=== PATIENT | male | born 1950 | race Hispanic/Latino ===

== ENCOUNTER 2020-04-19 08:53 | Emergency (ER) | payer OTHER, BC ==
--- NOTE | 2020-04-19 11:00 | RAD REPORT ---
EXAM DESCRIPTION: CT - Head Brain Wo Cont - 04/19/2020 10:51 am CLINICAL HISTORY: epistaxis COMPARISON: None TECHNIQUE: Computed axial tomography of the head was obtained. IV contrast was not requested. All CT scans are performed using dose optimization technique as appropriate and may include automated exposure control or mA/KV adjustment according to patient size. FINDINGS: An intracranial bleed is not seen . The ventricles are normal in caliber. No extra-axial fluid collection is noted. Fluid is present within the right and left maxillary sinuses. Deviation of the nasal septum is noted. IMPRESSION: No acute intracranial abnormality is seen. If patient's symptoms persist MRI of the bra in would be recommended. Fluid within maxillary sinuses may indicate acute sinusitis
--- NOTE | 2020-04-19 11:15 | ER ---
Nurse's Notes [facility] Name: Manjinder Suggs Age: 70 yrs Sex: Male : 1950 Arrival Date: 04/19/2020 Time: 08:55 Bed 30 Private MD: Diagnosis: Acute maxillary sinusitis;Epistaxis Presentation: 04/19 09:30 Chief complaint: Patient states: has been a nose bleed on right nostril for past 4 iw days, intermittent, worse at night , this morning it was bad , has slowed down but still trickling . not on blood thinners. Coronavirus screen: At this time, the client does not indicate any symptoms associated with coronavirus-19. Ebola Screen: Patient negative for fever greater than or equal to 101.5 degrees Fahrenheit, and additional compatible Ebola Virus Disease symptoms Patient denies exposure to infectious person. Patient denies travel to an Ebola-affected area in the 21 days before illness onset. No symptoms or risks identified at this time. Initial Sepsis Screen: Does the patient meet any 2 criteria? No. Patient's initial sepsis screen is negative. Does the patient have a suspected source of infection? No. Patient's initial sepsis screen is negative. Risk Assessment: Do you want to hurt yourself or someone else? Patient reports no desire to harm self or others. Onset of symptoms was April 15, 2020. 09:30 Method Of Arrival: Ambulatory iw 09:30 Acuity: RENÉE 3 iw Historical: - Allergies: 09:33 No Known Allergies; iw - PMHx: 09:33 Arthritis; Gout; Hypertension; iw - PSHx: 09:33 Cholecystectomy; Hernia repair; iw - Immunization history:: Adult Immunizations unknown. - Social history:: Smoking status: unknown. Screenin:30 Abuse screen: Denies threats or abuse. Denies injuries from another. Nutritional jl7 screening: No deficits noted. Tuberculosis screening: No symptoms or risk factors identified. Fall Risk None identified. Assessment: 10:30 General: Appears in no apparent distress. uncomfortable, Behavior is calm, cooperative, jl7 appropriate for age. Pain: Denies pain. Neuro: Level of Consciousness is awake, alert, obeys commands, Oriented to person, place, time, situation. Cardiovascular: Patient's skin is warm and dry. Respiratory: Airway is patent Respiratory effort is even, unlabored, Respiratory pattern is regular, symmetrical. Derm: Skin is pink, warm \T\ dry. Vital Signs: 09:30 BP 155 / 92; Pulse 69; Resp 16; Temp 98.3; Pulse Ox 98% on R/A; Weight 129.27 kg; iw ED Course: 08:55 Patient arrived in ED. rg4 09:33 Triage completed. iw 09:34 Arm band placed on. iw 10:16 Mandy Miller RN is Primary Nurse. jl7 10:23 Samuel Ford PA is PHCP. cp 10:23 Brain Miranda MD is Attending Physician. cp 10:30 Patient has correct armband on for positive identification. Bed in low position. Call jl7 light in reach. Side rails up X 1. 10:49 CT Head Brain wo Cont In Process Unspecified. EDMS 11:14 Gracie Strauss MD is Referral Physician. cp 11:22 No provider procedures requiring assistance completed. Patient did not have IV access jl7 during this emergency room visit. Administered Medications: No medications were administered Outcome: 11:15 Discharge ordered by MD. cp 11:22 Discharged to home ambulatory. jl7 11:22 Condition: stable 11:22 Discharge instructions given to patient, Instructed on discharge instructions, follow up and referral plans. medication usage, Demonstrated understanding of instructions, follow-up care, medications, Prescriptions given X 1. 11:23 Patient left the ED. jl7 Signatures: Dispatcher [employer] EDRebeca Felix, RN PALMER Samuel Ford PA PA cp Garcia, Rubi rg4 Mandy Miller RN RN jl7
--- NOTE | 2020-04-19 11:16 | EDPHYS ---
Physician Documentation [facility] Name: Manjinder Suggs Age: 70 yrs Sex: Male : 1950 Arrival Date: 04/19/2020 Time: 08:55 Bed 30 Private MD: ED Physician Brain Miranda HPI: 04/19 10:40 This 70 yrs old Male presents to ER via Ambulatory with complaints of Nose cp Bleed. 10:40 The patient presents with a nose bleed, occurred from an unknown cause, that is cp intermittent and the bleeding resolved prior to arrival. Onset: The symptoms/episode began/occurred 4 day(s) ago. 10:40 Associated signs and symptoms: Pertinent negatives: cough, ear ache, fever, cp lightheadedness, shortness of breath, sore throat, active bleeding. Historical: - Allergies: 09:33 No Known Allergies; iw - PMHx: 09:33 Arthritis; Gout; Hypertension; iw - PSHx: 09:33 Cholecystectomy; Hernia repair; iw - Immunization history:: Adult Immunizations unknown. - Social history:: Smoking status: unknown. ROS: 10:45 ENT: Positive for history of epistaxis, Negative for drainage from ear(s), ear pain, cp difficulty swallowing, difficulty handling secretions. 10:45 Constitutional: Negative for body aches, chills, fever, poor PO intake. cp 10:45 Respiratory: Negative for cough, shortness of breath, wheezing. 10:45 Abdomen/GI: Negative for abdominal pain, nausea, vomiting, and diarrhea. 10:45 Skin: Negative for rash. 10:45 Neuro: Negative for headache, weakness. 10:45 All other systems are negative. Exam: 10:50 Constitutional: The patient appears in no acute distress, alert, awake, non-toxic, well cp developed, well nourished. 10:50 Head/Face: Normocephalic, atraumatic. cp 10:50 Eyes: Periorbital structures: appear normal, Conjunctiva: normal, no exudate, no injection, Lids and lashes: appear normal, bilaterally. 10:50 ENT: External ear(s): are unremarkable, Ear canal(s): are normal, clear, TM's: dullness, bilaterally, Nose: External nose: no obvious acute abnormality, Nasal septum: no septal hematoma appreciated, Nasal mucosa: dry, bleeding, is not appreciated, nasal drainage, is not appreciated, Mouth: Lips: moist, Oral mucosa: moist, Posterior pharynx: Airway: no evidence of obstruction, patent. 10:50 Neck: Lymph nodes: no appreciated lymphadenopathy. 10:50 Chest/axilla: Inspection: normal. 10:50 Cardiovascular: Rate: normal. 10:50 Respiratory: the patient does not display signs of respiratory distress, Respirations: normal, no use of accessory muscles, no retractions, labored breathing, is not present. 10:50 Skin: no rash present. Vital Signs: 09:30 BP 155 / 92; Pulse 69; Resp 16; Temp 98.3; Pulse Ox 98% on R/A; Weight 129.27 kg; iw MDM: 10:28 Patient medically screened. cp 11:00 Differential diagnosis: foreign body - resolved, foreign body - unresolved, nasal cp fracture, trauma, sinusitis, epistaxis r/t trauma, spontaneous epistaxis. 11:15 Data reviewed: vital signs, nurses notes, and as a result, I will discharge patient. cp 11:15 Counseling: I had a detailed discussion with the patient and/or guardian regarding: the cp historical points, exam findings, and any diagnostic results supporting the discharge/admit diagnosis, to return to the emergency department if symptoms worsen or persist or if there are any questions or concerns that arise at home. 04/19 10:36 Order name: CT Head Brain wo Cont; Complete Time: 11:07 cp Administered Medications: No medications were administered Disposition: 11:25 Chart complete. cp Disposition: 04/19/20 11:15 Discharged to Home. Impression: Acute maxillary sinusitis, Epistaxis. - Condition is Stable. - Discharge Instructions: Nosebleed, Adult, Sinusitis, Adult. - Prescriptions for Augmentin 875- 125 mg Oral Tablet - take 1 tablet by ORAL route every 12 hours for 10 days; 20 tablet. - Medication Reconciliation Form, Thank You Letter, Antibiotic Education, Prescription Opioid Use form. - Follow up: Gracie Strauss MD; When: 2 - 3 days; Reason: Recheck today's complaints. - Problem is new. - Symptoms have improved. Addendum: 04/20/2020 14:10 Co-signature as Attending Physician, Brain Miranda MD I agree with the assessment and k dr plan of care. Signatures: Dispatcher [employer] EDMS Brain Miranda MD MD kdr Rebeca Garcia RN RN iw Samuel Ford PA PA cp Leal, Jahala, PALMER RN jl7 Corrections: (The following items were deleted from the chart) 04/19 11:23 11:15 04/19/2020 11:15 Discharged to Home. Impression: Acute maxillary sinusitis; jl7 Epistaxis. Condition is Stable. Forms are Medication Reconciliation Form, Thank You Letter, Antibiotic Education, Prescription Opioid Use. Follow up: Gracie Strauss; When: 2 - 3 days; Reason: Recheck today's complaints. Problem is new. Symptoms have improved. cp
[2020-04-24 15:27] VITALS: BP 155/92; TEMP 98.3; O2SAT 98
== END 2020-04-19 11:23 | disposition home or self-care (01) ==
LOC: ER 08:53
DX: J01.00 Acute maxillary sinusitis, unspecified (principal); I10 Essential (primary) hypertension
CPT/HCPCS: 70450; 99283

== ENCOUNTER 2021-02-27 06:00 | Day surgery (SDC) | payer OTHER, BC ==
[2021-02-22 16:11] LABS: Absolute Lymphocytes (CBC) 2.5 K/uL (0.7-4.9); Basophils % 0.8 % (0-1.3); Hematocrit 48.3 % (39.6-49.0); Lymphocytes % 23.9 % (15.3-44.8); MPV 8.5 fL (7.6-11.3); RBC Red Blood Cell Count 5.01 M/uL (4.33-5.43)
[2021-02-22 16:24] LABS: Protime INR 1.04
--- NOTE | 2021-02-22 17:02 | RAD REPORT ---
EXAM DESCRIPTION: RAD - Chest Pa And Lat (2 Views) - 02/22/2021 4:39 pm CLINICAL HISTORY: Pre Op COMPARISON: CHEST SINGLE VIEW dated 11/02/2014; CHEST SINGLE VIEW dated 12/18/2012; CHEST SINGLE VIEW dated 12/17/2012; CHEST PA AND LAT 2 VIEW dated 09/12/2010 FINDINGS: Lines: None. Lungs: No evidence of edema or pneumonia. Pleural: No significant pleural effusions or pneumothorax. Cardiac: The heart size is within normal limits. Bones: No acute fractures. Other: IMPRESSION: No acute cardiopulmonary disease.
--- NOTE | 2021-02-25 09:03 | EKG ---
Test Date: 2021-02-22 Test Time: 14:46:14 Wheel Filler: CANDE MEASUREMENT RESULTS: Intervals: Rate: 61 ID: [id number] QRSD: 100 QT: 440 QTc: 442 Yale: P: 21 ID: [id number] QRS: -33 T: 16 INTERPRETIVE STATEMENTS: Normal sinus rhythm Left axis deviation Abnormal ECG Compared to ECG 02/09/2017 10:38:45 Left-axis deviation now present Electronically Signed On 02-25-21 08:57:58 CDT by Sylvester Falcon
[2021-02-27] MEDS ORDERED: NA CHLORIDE 0.9% 1,000 ML ONE (07:00)
[2021-02-27] MEDS ORDERED: CEFAZOLIN/SWI 2gm 2 GM/20 ML SYR ONE (07:01)
[2021-02-27] MEDS ORDERED: CELECOXIB 100 MG CAPSULE ONE (07:13)
[2021-02-27] MEDS ORDERED: ACETAMINOPHEN 500 MG TAB ONE (07:13)
[2021-02-27] MEDS ORDERED: LIDOCAINE 2% MPF 5 ML VIAL ONE (07:33)
[2021-02-27] MEDS ORDERED: MIDAZOLAM HCL 2 MG/2 ML INJ ONE (07:33)
[2021-02-27] MEDS ORDERED: propofoL 200 MG/20 ML VIAL IV ONE (07:33)
[2021-02-27] MEDS ORDERED: FENTANYL CITR 100 MCG/2 ML ONE (07:33)
[2021-02-27] MEDS ORDERED: dexAMETHasone 10 MG/ML VIAL ONE (07:33)
[2021-02-27] MEDS ORDERED: BUPIVACAINE 0.25% PF 30 ML VIAL ONE (07:41)
[2021-02-27] MEDS ORDERED: GLYCOPYRROLATE 0.2 MG/ML SYR ONE ×2 (08:14→08:23)
[2021-02-27] MEDS ORDERED: KETOROLAC 30 MG/ML INJ ONE (08:38)
--- NOTE | 2021-02-27 08:39 | P.BOP ---
Preoperative diagnosis: left knee medial meniscus tear Postoperative diagnosis: same, left knee lateral meniscus tear, left chondromalacia medial femur Primary procedure: left knee arthroscopic partial medial and lateral meniscectomies Acid Etch Operator: NONE,NONE Estimated blood loss: 3 cc Specimen: none Findings: see dictation Anesthesia: General Complications: None Implants: none Fluids & blood products: per anesthesia record; TT: 25 mins @ 300 mmHg Transferred to: Recovery Room Condition: Good
[2021-02-27] MEDS: HYDROMORPHONE HCL 1 MG/ML INJ ONE ×4 (08:45→09:00)
[2021-02-27] MEDS: MEPERIDINE HCL 50 MG/ML ONE ×4 (09:05→09:20)
[2021-02-27] MEDS ORDERED: HYDROCODONE/APAP 10/325 TAB ONE (10:14)
[2021-02-27 10:26] VITALS: BP 128/79; TEMP 97.3; O2SAT 99
--- NOTE | 2021-03-01 05:47 | OP ---
Date of Procedure: 02/27/2021 Surgeon: Abebe Zaman MD Preoperative Diagnosis: Left knee medial meniscus tear. Postoperative Diagnoses: 1.Left knee medial meniscus tear. 2.Left knee is lateral meniscus tear. 3.Left knee chondromalacia, medial femoral condyle. Procedure Performed: Left knee arthroscopic partial medial and lateral meniscectomies. Anesthesia: General LMA. Fluids: Per Anesthesia record. Estimated Blood Loss: 30 cc. Complications: None. Implants: None. Tourniquet Time: 25 minutes at 300 mmHg. Indication For Procedure: Manjinder is a 71-year-old male who presented to my clinic with signs, sympt oms, and MRI findings consistent with left knee medial meniscus tear. Patient failed conservative tr eatment measures and significant pain and mechanical symptoms of his left knee. I discussed with the patient at length risks and benefits associated with operative and nonoperative treatment. He expre ssed understanding and elected to proceed with operative treatment. Description Of Procedure: After informed consent was obtained, the patient was identified in preoper ative holding area. The left lower extremity was marked. The patient was then brought back to the o perating room, transferred to the operating table in supine fashion and placed under general LMA anes thesia. The left lower extremity was then prepped and draped in usual sterile fashion. A time-out w as initiated. The correct patient and procedure were confirmed and identified. The patient did rece jessica his preoperative prophylactic antibiotics. The left lower extremity was then exsanguinated using an Esmarch and tourniquet was inflated to 300 mmHg. Standard anteromedial and anterolateral portals were created. Diagnostic arthroscopy was performed. Patient was noted to have some mild chondromal acia changes of the trochlear groove. There were no loose bodies within the medial and lateral gutte rs. The arthroscope was then brought into the medial compartment. Patient was noted to have some gr nevaeh 3 chondromalacia changes of the medial femoral condyle and the patient was noted to have a comple x tear of the posterior horn of the medial meniscus. Partial medial meniscectomy was performed using a meniscal biter and arthroscopic shaver to smooth meniscal borders. It did have a radial component near the periphery. The arthroscope was then brought in the intercondylar notch. The patient was n oted to have an intact ACL and PCL. The arthroscope was then brought in the lateral compartment wher e the patient was noted to have a small degenerative tear of the posterior horn of the lateral menisc us. A partial lateral meniscectomy was performed using meniscal biters and arthroscopic shaver to sm ooth meniscal borders. This was less than 10% of the meniscus within the posterior horn. The arthro scopic instruments were then removed without complication. Wounds were then irrigated thoroughly wit h normal saline. Subcutaneous tissues and portals were approximated using 3-0 Monocryl. Sterile melody ssings were applied. Tourniquet was let down. Patient awakened and transferred to PACU in stable co ndition. Postoperative Plan: The patient will be weightbearing as tolerated and he will follow up in clinic n ext week for wound check. Physical Therapy will be consulted. The patient will use therapy per post meniscectomy protocol. ISSA/MIRZA Voice ID: [id number] Report ID: [id number]
== END 2021-02-27 11:00 | disposition home or self-care (01) ==
LOC: PRE 06:00
PROVIDERS: ATTEND Orthopaedic Surgery Sports Medicine
PROC: 0SBD4ZZ Excision of Left Knee Joint, Percutaneous Endoscopic Approach (ICD-10-PCS; 2021-02-27)
PROC: 0SBD4ZZ Excision of Left Knee Joint, Percutaneous Endoscopic Approach (ICD-10-PCS; principal; 2021-02-27 07:30)
DX: S83.232A Complex tear of medial meniscus, current injury, left knee, initial encounter (principal); M25.562 Pain in left knee; M17.12 Unilateral primary osteoarthritis, left knee; Z20.822 Contact with and (suspected) exposure to COVID-19
CPT/HCPCS: 93005; 85025; 80048; 36415; 85610; 82947 ×2; 85730; 71046; 29880; U0003; J2704; J2250; J3010; J1100; J2175; J1170 ×2; J0690; J7030

== ENCOUNTER 2022-02-28 05:55 | Day surgery (SDC) | payer OTHER, BC ==
[2022-02-24 11:09] LABS: Absolute Lymphocytes (CBC) 2.2 K/uL (0.7-4.9); Hematocrit 45.4 % (39.6-49.0); Lymphocytes % 26.7 % (15.3-44.8); MCV 95.4 fL (80-100); MPV 8.4 fL (7.6-11.3); RBC Red Blood Cell Count 4.76 M/uL (4.33-5.43)
[2022-02-24 11:14] LABS: Protime INR 1.05
[2022-02-24 11:21] LABS: Potassium 4.5 mmol/L (3.5-5.1)
--- NOTE | 2022-02-24 11:36 | RAD REPORT ---
EXAM DESCRIPTION: Lawrence Huffman (2 Views)02/24/2022 10:55 am CLINICAL HISTORY: Preop for shoulder surgery COMPARISON: 2020 FINDINGS: The lungs appear clear of acute infiltrate. The heart is normal size IMPRESSION: No acute abnormalities displayed
[2022-02-24 11:45] LABS: SARS-CoV-2 Antigen Rapid Res Negative (Negative)
[2022-02-28] MEDS ORDERED: NA CHLORIDE 0.9% 1,000 ML ONE (06:19)
[2022-02-28] MEDS ORDERED: CEFAZOLIN SODIUM 2 GM/VIAL ONE (06:19)
[2022-02-28] MEDS ORDERED: EPINEPHRINE/PF 1 MG/ML AMP ONE ×2 (07:03→09:14)
[2022-02-28] MEDS ORDERED: LIDOCAINE 1% MPF 5 ML VIAL ONE (07:18)
[2022-02-28] MEDS ORDERED: dexAMETHasone 10 MG/ML VIAL ONE ×2 (07:19→09:41)
[2022-02-28] MEDS ORDERED: FENTANYL CITR 100 MCG/2 ML ONE (07:19)
[2022-02-28] MEDS ORDERED: MIDAZOLAM HCL 2 MG/2 ML INJ ONE (07:20)
[2022-02-28] MEDS ORDERED: propofoL 200 MG/20 ML VIAL IV ONE ×2 (08:15→08:58)
[2022-02-28] MEDS ORDERED: LIDOCAINE 2% MPF 5 ML VIAL ONE (08:16)
[2022-02-28] MEDS ORDERED: ROCURONIUM 50 MG/5 ML VIAL IV ONE ×2 (08:17→09:01)
[2022-02-28] MEDS ORDERED: EPHEDRINE SULF 50 MG/ML VIAL ONE (08:38)
[2022-02-28] MEDS ORDERED: GLYCOPYRROLATE 0.2 MG/ML SYR ONE (09:14)
[2022-02-28] MEDS ORDERED: SUGAMMADEX SODIUM 200 MG/2 ML VIAL IV ONE (09:43)
--- NOTE | 2022-02-28 10:15 | P.BOP ---
Preoperative diagnosis: left shoulder rotator cuff tear, left shoulder impingement syndrome Postoperative diagnosis: same, left shoulder SLAP tear Primary procedure: left shoulder arthroscopic rotator cuff repair Secondary procedure: left shoulder arthroscopic SLAP debridement Other procedure(s): left shoulder arthroscopic subacromial dcompression [employer] Advisor: NONE,NONE Estimated blood loss: 5 cc Specimen: none Findings: see dictation Anesthesia: General Complications: None Implants: 4.75 mm Arthrex swivelock Fluids & blood products: per anesthesia record Transferred to: Recovery Room Condition: Good
[2022-02-28 11:30] VITALS: BP 100/53; TEMP 96.6; O2SAT 98
--- NOTE | 2022-02-28 12:32 | RAD REPORT ---
EXAM DESCRIPTION: RAD - Shoulder 1 View - 02/28/2022 10:26 am CLINICAL HISTORY: POST-OP COMPARISON: Shoulder Left Wo Cont dated 09/17/2021 FINDINGS: Single frontal projection of the left shoulder was performed. Mild arthritic changes are p resent. No fracture or dislocation seen.
--- NOTE | 2022-03-02 10:10 | P.OP ---
Preoperative diagnosis: left shoulder rotator cuff tear, impingement syndrome Postoperative diagnosis: same, SLAP tear Primary procedure: left shoulder arthroscopic rotator cuff repair Secondary procedure: left shoulder arthroscopic SLAP debridement Other procedure(s): left shoulder arthroscopic subacromial dcompression Anesthesia: general Estimated blood loss: 5 cc Specimen: none Findings: see dictation Operative Technique: Indication For Procedure: Manjinder is a 72-year-old male, who presented to my clinic with signs, symptoms, and MRI findings consistent with a left shoulder rotator cuff tear. The patient failed conservative treatment measures and had significant pain that interferes with activities of daily living. I discussed with the patient at length risks and benefits associated with operative and nonoperative treatment. He expressed understanding and elected to proceed with operative treatment. Description Of Procedure: After informed consent was obtained, the patient was identified in the preoperative holding area and the left upper extremity was marked. The patient was then brought back to PACU where he underwent an interscalene block to his left upper extremity performed by anesthesia. The patient was then brought back to the operating room, transferred to the operating table in supine fashion, and placed under general endotracheal anesthesia. He was then placed in the beach chair position with his extremitieswell padded. The left upper extremity was then prepped and draped in usual sterile fashion and a time-out was initiated. The correct patient and procedurewere confirmed and identified. The patient did receive his preoperative prophylactic antibiotics. A spinal needle was then introduced into the glenohumeral joint and the shoulder was injected with 30 cc of normal saline to distend the capsule. A posterior portal was created and the arthroscope was brought in via the posterior portal position. A diagnostic arthroscopy was performed. An anterior cannula and portal were placed under direct visualization. A biceps tenotomy was then performed, there was no significant fraying of the biceps tendon anchor as well as a type 1 SLAP tear. Using a meniscal biter, the anchor was then debrided using an arthroscopic shaver as well as the type 1 SLAP tear to smooth borders. There was no significance fraying of the the anterior or posterior labrum. There was no significant chondromalacia noted of the humeral head. There were no loose bodies within the axillary pouch. The subscapularis was found to be intact and stable to probe. The anterior supraspinatus was identified and the patient noted to have a small full-thickness tear of the anterior insertion point of thesupraspinatus. This was debrided using arthroscopic shaver after lateral portal was created using an arthroscopic shaver. The arthroscope was then brought to the subacromial space and a subacromial bursectomy was performed. There was significant inflammation noted within the bursa with bursitis as well as frayingof the coracoacromial ligament. The rotator cuff tear was then identified. It was small and not significantly retracted and amenable to repair using a Speed-fix fixation. A FiberTape was then placed in an inverted horizontal mattress fashion within that rotator cuff tearing. This was held reduced to the greater tuberosity and a single 4.75 mm Arthrex SwiveLock was used to reduce the tear. There was good overall reduction of the tear. The patient was noted to have significant hyperemia of the rotator cuff and significant fraying of the rotatorcuff tendon consistent with tendinitis as well as degeneration. Next, attention was taken to subacromial decompression. Undersurface of the acromion was then debrided using an arthroscopic shaver as well as part of the coracoacromial ligament. An acromioplasty was then performed using arthroscopic alonso. Arthroscopic instruments were then removed without complication. Wounds were irrigated thoroughly with normal saline. Skin was approximated using a 4-0 Monocryl. Sterile dressings were applied. The patient was placed in a shoulderimmobilizer, awakened, transferred to PACU in stable condition. Postoperative Plan: The patient will follow the medial rotator cuff protocol at 4 weeks postop. Complications: None Implants: 4.75 mm Swivelock Fluids & blood products: per anesthesia reocrd Transferred to: Recovery Room Condition: Good
== END 2022-02-28 12:00 | disposition home or self-care (01) ==
LOC: OR 05:55
PROVIDERS: ATTEND Orthopaedic Surgery Sports Medicine
PROC: 0LM24ZZ Reattachment of Left Shoulder Tendon, Percutaneous Endoscopic Approach (ICD-10-PCS; 2022-02-28)
PROC: 0RNK4ZZ Release Left Shoulder Joint, Percutaneous Endoscopic Approach (ICD-10-PCS; principal; 2022-02-28 08:00)
DX: M25.512 Pain in left shoulder (principal); M75.102 Unspecified rotator cuff tear or rupture of left shoulder, not specified as traumatic; M75.22 Bicipital tendinitis, left shoulder; M75.42 Impingement syndrome of left shoulder; I10 Essential (primary) hypertension; E11.9 Type 2 diabetes mellitus without complications; B19.10 Unspecified viral hepatitis B without hepatic coma; Z20.822 Contact with and (suspected) exposure to COVID-19
CPT/HCPCS: 29827; 29826; 29822; 85025; 80048; 36415; 85610; 82947 ×2; 85730; 71046; 73020; 87811; J2704 ×2; J0171 ×2; J2001 ×2; J2250; J3010; J1100 ×2; J7030

== ENCOUNTER 2023-07-29 08:17 | Day surgery (SDC) | payer OTHER, BC ==
--- NOTE | 2023-07-28 13:30 | RAD REPORT ---
EXAM DESCRIPTION: RAD - Chest Pa And Lat (2 Views) - 07/28/2023 1:02 pm CLINICAL HISTORY: PREOP Chest pain. COMPARISON: Chest Pa And Lat (2 Views) dated 02/24/2022; Chest Pa And Lat (2 Views) dated 02/22/2021 ; CHEST SINGLE VIEW dated 11/02/2014; CHEST SINGLE VIEW dated 12/18/2012 TECHNIQUE: PA and lateral views of the chest were obtained. FINDINGS: The lungs are hyperexpanded compatible with COPD. The heart is upper limit of normal in si ze. No fracture or aggressive bony process. IMPRESSION: COPD without acute process identified. The USPSTF recommends annual screening for lung cancer with low-dose CT (LDCT) in adults aged 50 to 8 0 years who have a 20 pack-year smoking history and currently smoke or have quit within the past 15 y ears.
[2023-07-28 14:13] LABS: Anion Gap 8.1 mEq/L (5.0-15.0); Potassium 4.1 mEq/L (3.5-5.1)
[2023-07-28 14:34] LABS: Absolute Eosinophils 0.4 K/uL (0-0.5); Absolute Lymphocytes (CBC) 2.1 K/uL (0.7-4.9); Absolute Monocytes 0.5 K/uL (0.1-1.3); Absolute Neutrophil 4.4 K/uL (1.8-8.0); Basophils % 0.6 % (0-1.3); Eosinophils % 5.4 % (0-4.4); Hematocrit 44.2 % (39.6-49.0); Hemoglobin 14.8 g/dL (13.6-17.9); Lymphocytes % 28.7 % (15.3-44.8); MCH 31.9 pg (27.0-35.0); MCHC 33.5 g/dL (32.0-36.0); MCV 95.3 fL (80-100); MPV 9.3 fL (7.6-11.3); Monocytes % 6.7 % (3.3-12.3); Neutrophils % 58.6 % (41.7-73.7); Nucleated Red Blood Cells % 0.2 % (0-0); Platelets 128 thou/uL (152-406); RBC Red Blood Cell Count 4.64 M/uL (4.33-5.43); Red Cell Distribution Width 13.7 % (12.1-15.2)
[2023-07-29] MEDS: NA CHLORIDE 0.9% 1,000 ML ONE (09:00)
[2023-07-29] MEDS: CEFAZOLIN SODIUM 1 GM/VIAL ONE (11:08)
[2023-07-29] MEDS ORDERED: propofoL 200 MG/20 ML VIAL IV ONE (11:42)
[2023-07-29] MEDS ORDERED: dexAMETHasone 4 MG/ML VIAL ONE (11:42)
[2023-07-29] MEDS ORDERED: LIDOCAINE 1% MPF 5 ML VIAL ONE (11:42)
[2023-07-29] MEDS ORDERED: FENTANYL CITR 100 MCG/2 ML ONE (11:43)
[2023-07-29] MEDS ORDERED: MIDAZOLAM HCL 2 MG/2 ML INJ ONE (11:44)
[2023-07-29] MEDS ORDERED: ONDANSETRON 4 MG/2 ML VIAL ONE (11:45)
[2023-07-29] MEDS ORDERED: EPHEDRINE SULF 50 MG/ML VIAL ONE (12:34)
[2023-07-29] MEDS ORDERED: GLYCOPYRROLATE 0.2 MG/ML SYR ONE (12:44)
--- NOTE | 2023-07-29 13:17 | P.BOP ---
Preoperative diagnosis: Infected left posterior neck mass Postoperative diagnosis: same Primary procedure: Excisional biopsy of Infected left posterior neck mass 4x2cm Estimated blood loss: <10cc Specimen: Infected left posterior neck mass Findings: Infected left posterior neck mass Anesthesia: General Complications: None Transferred to: Recovery Room Condition: Good
[2023-07-29 15:00] VITALS: BP 141/81; TEMP 97; O2SAT 97
--- NOTE | 2023-07-29 19:42 | OP ---
Date of Procedure: 07/29/2023 Surgeon: Thee Holloway MD Preoperative Diagnosis: Infected left posterior neck subcutaneous mass. Postoperative Diagnosis: Infected left posterior neck subcutaneous mass. Procedure: Excisional biopsy of infected left posterior neck subcutaneous mass 4 x 2 cm. Estimated Blood Loss: Less than 10 cc. Specimen: Infected left posterior neck mass. Finding: Infected left posterior neck mass. Complications: None. Indication: This is a case of a 73-year-old patient who came to us with infected posterior neck mass . Patient was started on antibiotics to bring the erythema down and swelling down. The mass was sti ll present. He wants that excised. This is not the first time it happened to him and he wants to be done also under anesthesia. He cannot even take needles in that area. So he has to be booked under Anesthesia. The benefits, alternatives, and risks of excisional biopsy of infected mass fully expla ined, which include, but not limited to, infection, bleeding, damage to adjacent structures, anesthes ia complication, recurrence, LA, even . He also understands this may not relieve any symptoms. He might need more than one surgical intervention. He understood, signed a consent. Description Of The Operation: The patient was brought to the operating room, placed in supine positi on. Anesthesia was done without complication. The patient was placed in lateral decubitus position with proper protection. The area of concern was marked previously by me and the patient in the [facility] [facility] room. So after the time-out, we prepped the area in the usual sterile fashion. Local anesthesia was applied followed by wedge incision all the way down to fascia of the muscle but the muscle was no t involved in this case. Mass was completely excised. Some other areas that seems to be swollen is not part of the mass. This was just a reaction from its inflammation that is coming down. Area was irrigated. We proceeded to approximate the area with 3-0 chromic and then nylon interrupted. Patien t tolerated the procedure well. Sponge counts and instrument counts were correct. Hemostasis was ob tained before closure and also local anesthetic was applied. Patient sent to Recovery in stable cond ition. HM/MODL Voice ID: [id number] Report ID: [id number]
--- NOTE | 2023-07-29 19:48 | DS ---
Date of Discharge: 07/29/2023 Diagnosis: Infected left posterior neck subcutaneous mass. Procedure: Excisional biopsy of infected left posterior neck subcutaneous mass. Disposition: Home. Activity: As tolerated. No heavy lifting. Plan: Follow up in my office in 1 week. Call for appointment [phone]. Keep area dry for 24 hours, then clean with soap and water and apply topical antibiotic ointment in that region. He understands . It was previously explained to him that in the next few days, it is hard to get red, we may have t o just let this close by secondary intention. He still want to see if we can put the stitches in and he took the antibiotics and it improved so much. PAULINA/MIRZA Voice ID: [id number] Report ID: [id number]
== END 2023-07-29 14:25 | disposition home or self-care (01) ==
LOC: OR 08:17
PROVIDERS: ATTEND Surgery
PROC: 0JB50ZZ Excision of Left Neck Subcutaneous Tissue and Fascia, Open Approach (ICD-10-PCS; principal; 2023-07-29 11:45)
DX: L72.0 Epidermal cyst (principal)
CPT/HCPCS: 11424; 85025; 80048; 36415; 82947 ×2; 88304; 71046; J2704; J1100; J2001; J2250; J3010; J2405; J7030; J0690

== ENCOUNTER 2024-02-27 11:33 | Emergency (ER) | payer OTHER, BC ==
--- OUTSIDE RECORDS SUMMARY | 2024-02-27 11:36 | XMS REPORT | Continuity of Care Document ---
Author Name Unknown Address [address] [facility] [address] [place] [address] [facility] thconnect Address [address] [facility] [place] [address] Care Team Providers Care Band Attacher Name Role Phone BENNY MOORE Primary Care Physician Unavaila Benny Pina Attending Clinician Unavailable Yunier, [place] Attending Clinician Unavailable ARTURO ÁLVAREZ Attending Clinician Unavaila Amanda Bone Cardiology Attending Clinician Unavailable RADIOLOGY Attending Clinician Unavailable Radiology Attending Clinician Unavailable Rebeca Cardona MD Attending Clinician REBECA CARDONA Attending Clinician Unavailable Doctor Unassigned, [place] Attending Clinician U navailable Yunier, [place] Admitting Clinician Unavailable ARTURO ÁLVAREZ Admitting Clinician Unavaila Amanda Bnoe Cardiology Admitting Clinician Unavailable PEGGY MORRIS Admitting Clinician Unavaila REBECA Watts Admitting Clinician Unavailable Payers Payer Name Policy Type Policy Number Effective Date Expiration Date Source [facility] PPO 53 [id number] [facility] MEDICARE PART A \\T\\ B [id number] 2015 00:00:00 [facility] [id number] 2017 00:00:00 Problems Condition Name Condition Details Condition Category Status Onset Date Resolution Date Last Treatment Date Treating Clinician Comments Source Chronic pain syndrome Chronic pain syndrome Problem [facility] Skin sensation disturbanc e Bilateral leg paresthesi a Problem [facility] Acquired hallux rigidus Hallux rigidus, left foot Problem [facility] [id number] Adult-onse t obesity Problem [facility] Solitary sacroiliit is Sacroiliit is Problem [facility] Allergies, Adverse Reactions, Alerts Allergy Name Allergy Type Status Severity Reaction(s) Onset Date Inactive Date Treating Clinician Comments Source No Known Allergie s DA Active U 01-21 00:00: 00 [facility] NO KNOWN ALLERGIE S Drug Class Active [facility] Social History Social Habit Start Date Stop Date Quantity Comments Source History of Tobacco Use [facility] Sex Assigned At [facility] Smoking Status Start Date Stop Date Source Tobacco smoking consumption unknown [facility] Never Smoker [facility] Medications Ordered Medication Name Filled Medication Name Start Date Stop Date Current Medication? Ordering Clinician Indication Dosage Frequency Signature (SIG) Comments Components Source Pregabalin 200 MG Pregabalin 200 MG - 00:00: 00 No 1{capsu le} BID Pregabalin 200 MG amLODIPine Besylate 10 MG amLODIPine Besylate 10 MG No amLODIPine Besylate 10 MG Allopurinol 300 MG Allopurinol 300 MG No Allopurino l 300 MG Rosuvastati n Calcium 20 MG Rosuvastati n Calcium 20 MG No Rosuvastat in Calcium 20 MG Ramipril 1.25 MG Ramipril 1.25 MG No Ramipril 1.25 MG Metoprolol Tartrate 25 MG Metoprolol Tartrate 25 MG No Metoprolol Tartrate 25 MG metFORMIN HCl ER 500 MG metFORMIN HCl ER 500 MG No metFORMIN HCl ER 500 MG Vital Signs Vital Name Observation Time Observation Value Comments S ource height 2023-11-25 13:00:00 71 [in_i] [facility] weight-kg 2023-11-25 13:00:00 120.2 kg [facility] bmi 2023-11-25 13:00:00 36.96 kg/m2 [facility] heart rate 2023-11-25 13:00:00 76 /min [facility] blood pressure systolic 2023-11-25 13:00:00 129 mm[Hg] [facility] blood pressure diastolic 2023-11-25 13:00:00 81 mm[Hg] [facility] Procedures Procedure Date / Time Performed Performing Clinicia n Source MR PELVIS WO CONTRAST 2022-10-23 16:35:23 Requisition, Paper [facility] XR HIPS 2 VW BILATERAL 2022-10-16 17:42:40 Requisition , Paper [facility] XR LUMBAR SPINE 2 VW 2022-10-16 17:42:40 Rebeca Cardona [facility] ASSIGNMENT OF BENEFITS 2022-10-16 17:02:51 Docto r Unassigned, [place] [facility] Encounters Start Date/Time End Date/Time Encounter Type Admission Type Attending Clinicians Care Facility Care Department Encounter ID Source 2023-11-25 12:57:00 Outpatient Moore, Benny [facility] [id number] [facility] 2024-01-22 20:28:00 2024-01-23 15:44:00 Inpatient ДМИТРИЙ [place] [facility] INTE.02 [id number] [facility] 2023-11-25 00:00:00 2023-11-25 00:00:00 Office Visit- Est Pt.- Level 4 [facility] [id number] [facility] 2023-09-24 12:04:00 2023-09-25 09:45:00 Outpatient ARTURO ÁLVAREZ [facility] [id number] BL 2023-02-17 11:45:00 2023-02-17 11:45:00 Outpatient Amanda Larios [facility] [id number] 98 [facility] 2022-10-23 10:06:58 2022-10-23 23:59:00 Outpatient R RADIOLOGY [facility] RAD [id number] [facility] 2022-10-23 10:06:58 2022-10-23 23:59:00 Hospital Encounter Radiology [facility] [id number] [facility] 2022-10-16 12:06:42 2022-10-16 23:59:00 Hospital Encounter Rebeca Cardona [facility] [id number] [facility] 2022-10-16 12:06:42 2022-10-16 23:59:00 Outpatient R PANCHOCHRISTI MURPHYIC [facility] [id number] [facility] 2022-10-16 00:00:00 2022-10-16 00:00:00 Orders Only Doctor Unassigned, [place] [facility] [id number] [facility] Results Test Description Test Time Test Comments Results Result Co mments Source GLUCOSE BEDSIDE [id number] 07:28:00* Test Item Value Reference Range Interpretation Comme [facility] GLUCOSE BEDSIDE TESTING (mary t code = GLUBED) 85 MG/DL 60-99 N LIPID PROFILE (CORONARY RISK)2024-01-23 05:22:00* Test Item Value Reference Range Interpretation Comme [facility] TRIGLYCERIDES (test code = TRIG) 344 MG/DL 150-199 H TRIGLYCERIDES REFERENCE RANGE:Normal: <150 mg/dLBorderline High: 150-199 mg/dLHigh: 200-499 mg/dLVery High: >=500 mg/dL CHOLESTEROL (test code = CHOL) 98 MG/DL <200 HDL CHOLESTEROL (test code = HDL) 29 MG/DL 40-59 L LIPOPROTEIN LDL (test code = LDL) 36 MG/DL 0-99 N OPTIMAL......... <100 mg/dLNEAR OPTIMAL/ABOVE OPTIMAL.........100-12 9 mg/dL BORDERLINE HIGH.........130-159 mg/dL HIGH.........160-189 mg/dL VERY HIGH.........>/= 190 mg/dL [id number] 05:22:00* Test Item Value Reference Range Interpretation Comme [facility] PHOSPHOROUS (test code = PHOS) 3.7 MG/DL 2.5-4.5 N [id number] 05:22:00* Test Item Value Reference Range Interpretation Comme [facility] MAGNESIUM (test code = MAG) 2.0 MG/DL 1.6-2.3 N THYROID STIMULATING [id number] 05:22:00* Test Item Value Reference Range Interpretation Comme [facility] THYROID STIMULATING HORMONE (test code = TSH) 2.640 MIU/L 0.465-4.68 N Please be aware that bias results for TSH may occur forpatient who are taking Biotin supplements. [id number] 05:09:00* Test Item Value Reference Range Interpretation Comme [facility] TROPONIN-I (test code = TROPI) < 0.012 NG/ML 0.012-0.033 L "Please be aware that bias results for Troponin may occurfor patients who are taking Biotin supplements, causingfalsely low troponin results. Please screen for routineBiotin (Vitamin B7) supplements taken in mirian doses (greaterthan 100-300mg/day) or beauty supplements." PROTHROMBIN [id number] 05:00:00* Test Item Value Reference Range Interpretation Comme [facility] PROTHROMBIN TIME PATIENT (test code = PTP) 11.4 SECONDS 9.4-12.5 N INTERNATIONAL NORMAL RATIO (test code = INR) 1.0 0.86-1.14 N The INR is to be used only for monitoring oral anticoagulanttherap y. INDICATION INR VALUE -------1. Prophylaxis, deep venous thrombosis, including high risk surgery. 2.0 - 3.0 2. Prophylaxis, deep venous thrombosis, hip surgery, treatment for deep venous thrombosis or pulmonary prevention of systemic embolism in patients with valvular heart disease, atrial fibrillation, tissue heart valve, or acute myocardial infarction. 2.0 - 3.0 3. Mechanical prosthesis heart valves, recurrent systemic embolism. 3.0 - 4.5 PTT [id number] 05:00:00* Test Item Value Reference Range Interpretation Comme nts PTT ACTIVATED (test code = APTT) 36.5 SECONDS 25.1-36.5 N GLYCOSYLATED HEMOGLOBIN [id number] 04:50:00* Test Item Value Reference Range Interpretation Comme nts GLYCOSYLATED HEMOGLOBIN (HA1C) (test code = GLYHGB) 5.5 % 4.8-5.9 N Any condition th at shortens erythocyte survival or decreasesmean erythrocyte age (e.g., recovery from acute blood loss,hemolytic anemia) will falsely lower HGBA1c resultsregardless of the method used. HGBA1c results from patientswith HbSS, HbCC, and HbSc must be interpreted with cautiongiven the pathological processes, including anemia,increased red cell turnover, transfusion requirements, thatadversely impact HGBA1c as a marker of long-term glycemiccontrol. Alternative forms of testing such as fructosamineshould be considered for these patients. MEAN BLOOD GLUCOSE (test code = MBG) 111 MG/DL 70-110 H [id number] 02:47:00* Test Item Value Reference Range Interpretation Comme nts TROPONIN-I (test code = TROPI) 0.014 NG/ML 0.012-0.033 "Please be aware that bias results for Troponin may occurfor patients who are taking Biotin supplements, causingfalsely low troponin results. Please screen for routineBiotin (Vitamin B7) supplements taken in mirian doses (greaterthan 100-300mg/day) or beauty supplements." COMPREHENSIVE METABOLIC [id number] 23:24:00* Test Item Value Reference Range Interpretation Comme nts SODIUM (test code = NA) 140 MMOL/L 137-145 N POTASSIUM (test code = K) 3.8 MMOL/L 3.5-5.1 N CHLORIDE (test code = CL) 104 MMOL/L 98-107 N CARBON DIOXIDE (test code = CO2) 29 MMOL/L 22-30 N GLUCOSE (test code = GLU) 206 MG/DL 74-106 H BLOOD UREA NITROGEN (test code = BUN) 30 MG/DL 9-20 H GLOMERULAR FILTRATION RATE (test code = GFR) 53 The Glomerular Filtration Rate is a calculated parameterbased on serum Creatinine, patient age and sex. GFR valuesless than 60 mL/min/1.73 square meters are indicative ofChronic Kidney Disease. Values less than 15 mL/min/1.73square meters indicate Kidney failure. The calculation forGFR is based on the CKD-EPI (2021) calculation. This formulais race indifferent and is the recommended formula for GFRby the National Kidney Foundation for Adults.The GFR will not calculate if the sex is unknown or if thepatient's age is <18 years. CREATININE (test code = CREAT) 1.40 MG/DL 0.66-1.25 H TOTAL PROTEIN (test code = PROT) 7.2 G/DL 6.2-7.6 N Ortho Clinical D iagnostic has made us aware of newinformation regarding the potential interference ofEltrombopag (a bone marrow stimulant used to treatthrombocytonmenia and aplastic anemia) with specific assayson the [employer] 5600 of which Total Protein is one of thoseassays performed in our lab.Interference testing performed at [facility] determined thatEltrombopag does interfere with Vitros Total Protein asfollowsEltrombopag Interference for Vitros Product Total Protein: Eltrombopag Max Observed Avg. BiasConcentration Concentration Concentration 2.5 mg/dl 6.0 g/dl +0.41 +0.34 3.5 mg/dl 6.0 g/dl +0.50 +0.45 5 mg/dl 6.0 g/dl +0.73 +0.65 2.5 mg/dl 8.0 g/dl +0.44 +0.41 3.5 mg/dl 8.0 g/dl +0.55 +0.52 5 mg/dl 8.0 g/dl +0.86 +0.77 ALBUMIN (test code = ALB) 4.4 G/DL 3.5-5.0 N CALCIUM (test code = CA) 9.0 MG/DL 8.4-10.2 N BILIRUBIN TOTAL (test code = BILT) 0.7 MG/DL 0.2-1.3 N Eltrombopag Inte rference for Vitros Product TBil, BuBc: Assay Eltrombopag Analyte/ Max Observed Avg. Bias Concentration Concentration Concentration TBil 7mg/dl TBil/ 1.2mg/dl +0.23mg.dl +0.20mg/dlBuBc 3.5mg/dl Bu/0.8mg/dl +0.25mg/dl +0.24mg/dlBuBc 7 mg/dl Bu/14.2mg/dl +0.38mg/dl +0.25mg/dlBuBc 5mg/dl Bc/0mg/dl +0.25mg/dl +0.15mg/dlBuBc 3.5mg/dl Bc/2.8mg/dl +0.25mg/dl +0.23mg/dl SGOT/AST (test code = AST) 24 UNITS/L 17-59 N SGPT/ALT (test code = ALT) 24 UNITS/L 0-49 N ALKALINE PHOSPHATASE (test code = ALKP) 78 UNITS/L 38-126 N NT PRO-BRAIN NATRIURETIC [id number] 23:24:00* Test Item Value Reference Range Interpretation Comme nts NT PRO-BRAIN NATRIURETIC PEPTI (test code = PROBNP) 1690.0 pg/mL INTERPRETATION O F RESULTS Results of this test should be used in accordance with the appropriate clinical guidelines and in conjunction with clinical presentation and other diagnostic tests. Clinical guidelines recommend using natriuretic peptides in both Emergency Department (ED) and outpatient settings for diagnosis or exclusion of heart failure (HF). The performance of the VITROS NT-proBNP II test was evaluated separately in each of these settings using published age-independent and age-dependent cutoffs. EMERGENCY DEPARTMENT SETTINGS/INPATIENT: For patients presenting to the ED settings with acute or worsening dyspnea and clinical suspicion of HF, the VITROS NT-proBNP II test results should be interpreted as indicated in the table below. NT-pro BNP II Test Age Group Interpretation of Results Results (pg/mL) <300 All Negative: Heart Failure Unlikely -->=300 to <450 22-<50 Louise Zone: Result >=300 to <900 50-<75 Indeterminate >=300 to <1800 >=75 - Consider other causes of NT-proBNP elevation ---------------->=450 22-<50 >=900 50-<75 Positive: Heart Failure likely >=1800 >=75 OUTPAT IENT SETTINGS: In the outpatient settings, the optimal use of natriuretic peptides is to exclude HF. Therefore, a lower rule-out cutoff which increases sensitivity and negative predictive value is needed, as patients can present with limited, less acute HF symptoms. For ambulatory patients presenting to outpatient facilities with clinical suspicion of HF not previously diagnosed and at least one sign, symptom or risk factor for HF, the VITROSNT-proBNP II test results should be interpreted as indicatedin the table below. NT-pro BNP II Test Age Group Interpretation of Results Results (pg/mL) <125 All Negative: Heart Failure Unlikely ---------------->=125 All Consider Heart Failure as well as other causes* of NT-proBNP elevation. [id number] 23:24:00* Test Item Value Reference Range Interpretation Comme nts TROPONIN-I (test code = TROPI) < 0.012 NG/ML 0.012-0.033 L "Please be aware that bias results for Troponin may occurfor patients who are taking Biotin supplements, causingfalsely low troponin results. Please screen for routineBiotin (Vitamin B7) supplements taken in mirian doses (greaterthan 100-300mg/day) or beauty supplements." CBC W/AUTO [id number] 22:16:00* Test Item Value Reference Range Interpretation Comme nts WHITE BLOOD CELL (test code = WBC) 7.5 K/MM3 3.8-9.8 N RED BLOOD CELL (test code = RBC) 4.84 M/MM3 3.95-5.67 N HEMOGLOBIN (test code = HGB) 15.1 G/DL 12.4-16.7 N HEMATOCRIT (test code = HCT) 46.0 % 35.9-49.5 N MEAN CELL VOLUME (test code = MCV) 95 fL 81.7-96.1 N MEAN CELL HGB (test code = MCH) 31.2 pg 27.6-33.2 N MEAN CELL HGB CONCETRATION (test code = MCHC) 32.8 % 32.9-35.5 L RED CELL DISTRIBUTION WIDTH (test code = RDW) 13.8 % 12.1-15.2 N PLATELET COUNT (test code = PLT) 111 K/MM3 129-368 L MEAN PLATELET VOLUME (test c ode = MPV) 11.1 fl 7.4-10.4 H NEUTROPHIL % (test code = NT%) 53.4 % 43-75 N IMMATURE GRANULOCYTE % (test code = IG%) 0.1 % 0.0-2.0 N LYMPHOCYTE % (test code = LY%) 35.8 % 14-44 N MONOCYTE % (test code = MO%) 4.7 % 4-13 N EOSINOPHIL % (test code = EO%) 5.5 % 0-6 N BASOPHIL % (test code = BA%) 0.5 % 0-2 N NUCLEATED RBC % (test code = NRBC%) 0.0 % 0-1.0 N NEUTROPHIL # (test code = NT#) 3.97 K/mm3 2.0-7.6 N IMMATURE GRANULOCYTE # (test code = IG#) 0.01 x10 3/uL 0-0.03 N LYMPHOCYTE # (test code = LY#) 2.67 K/mm3 1.0-3.8 N MONOCYTE # (test code = MO#) 0.35 K/mm3 0.1-0.8 N EOSINOPHIL # (test code = EO#) 0.41 K/mm3 0.0-0.2 H BASOPHIL # (test code = BA#) 0.04 K/mm3 0.0-0.2 N NUCLEATED RBC # (test code = NRBC#) 0.00 K/mm3 0.0-0.1 N GLUCOSE BEDSIDE [id number] 21:03:00* Test Item Value Reference Range Interpretation Comme nts GLUCOSE BEDSIDE TESTING (mary t code = GLUBED) 95 MG/DL 60-99 N - CTA HEART W CN [id number] 00:00:00 [facility] 1950 Sex: M Name: SINDHU ACEVES [facility] : 1950 Age/S: 73 / M [address] [place] [address] Blvd Unit #: [id number] Loc: [place] [address] Phys: Amanda Eaton MD Cardiology Acct: [id number] Dis Date: Status: DEP CLI PHONE #: [phone] Exam Date: 02/17/2023 1318 FAX #: [phone] Reason: EXAMS: CPT CODE: [id number] CTA HEART W CN ART/GRAFTS 23000 Radiation Dose CTDIVOL = 91.92 (mGy): DLP = 960.03 (mGy-cm) PROCEDURE INFORMATION: Exam: CTA Heart And Coronary Arteries With Contrast Exam date andtime: 02/17/2023 12:53 PM Age: 73 years old Clinical indication: Other: Cad TECHNIQUE: Imaging protocol: CT angiography of the heart, coronary arteries, and bypass grafts (when present) with contrast including 3D image postprocessing. Standard prospective cardiac-gated CAC scoring protocol was usedfor image acquisition. Following intravenous contrast administration, ECG gated CTA was performed. 3D rendering (Not supervised by radiologist): MIP and/or 3D reconstructed images were created by the technologist. Radiation optimization: All CT scans at this facility use at least one of these dose optimization techniques: automated exposure control; mA and/or kV adjustment per patient size (includes targeted exams where dose is matched to clinical indication); or iterative reconstruction. Contrast material: ISO 370; Contrast volume: 100 ml; Contrast route: INTRAVENOUS (IV); Pharmacological intervention: None. REPORTING DATA: Count of CT and Cardiac NM exams in prior 12 months: This patient has received 0 known CTs and 0 known cardiac nuclear medicine studies in the 12 months prior to the current study. COMPARISON: No relevant prior studies available. RADIATION DOSE METRICS: CTDI volume (mGy): 91.92 Total DLP (mGy-cm): 960.03 FINDINGS: CALCIUM SCORE: LM Score: 13 LAD Score: 319 LCX Score: 184 RCA Score: 182 Total calcium score (Agatston method): Total calcium score is 698. CORONARY: Left main coronary artery (LMCA): The left main coronary artery is a medium caliber vessel that bif urcates to form a left anterior descending artery and a left circumflex artery. It demonstrates calcified plaque associated with minimal stenosis. PAGE 1 Signed Report (CONTINUED) Name: SINDHU ACEVES [facility] : 1950 Age/S: 73 / M [address] [place] [address] Blvd Unit #: [id number] Loc: [place] [address] Phys: Amanda Eaton MD Cardiology Acct: [id number] Dis Date: Status: DEP CLI PHONE #: [phone] Exam Date: 02/17/20238 FAX #: [phone] Reason: EXAMS: CPT CODE: [id number] HEART W CN ART/GRAFTS 72133 (Continued) Left anterior descending artery (LAD): There is calcified plaque throughout the proximal and mid segments likely associated with minimal to mild stenosis, less than 50% luminal narrowing. Motion artifact in limits evaluation of the distal LAD. There is nonobstructive calcified plaque within the 1st diagonal branch. Left circumflex artery (LCx): Calcified plaque is present throughout the left circumflex artery likely associated with minimal to mild stenosis, less than 50% luminal narrowing. There is nonobstructive calcified plaque throughout the 1st obtuse marginal branch. Right coronary artery (RCA): Calcified plaque is present throughout the proximal and mid right coronary artery associated with minimal to mild stenosis, less than 50% luminal narrowing. The right coronary artery terminates as a posterior descending artery and with no evidence of plaque or stenosis. Coronary artery dominance: Right CARDIAC: Cardiac valves: No thickening or calcification of the aortic and mitral valves. Myocardium: Normal wall thickeness. No intraventricular or atrial septal defect is identified. Pericardium: No pericardial effusion or thickening. FUNCTIONAL ANALYSIS: Left ventricular function: Not performed Lungs: Visualized lungs are unremarkable. Mediastinal space: Dilated ascending aorta measures approximately 4.6 cm in diameter at the level of the right pulmonary artery. IMPRESSION: 1. No evidence of obstructive coronary artery disease. There is widespread nonobstructive plaque throughout the left main coronary artery, LAD, LCX, and RCA, as d escribed. The distal LAD is not well visualized on this exam. 2. Severe burden of calcified coronary plaque, with total calcium score 698. 3. Dilated ascending aorta measures 4.6 cm in diameter at the level of the right pulmonary artery. Continued surveillance imaging is recommended. PAGE 2 Signed Report (CONTINUED) Name: SINDHU ACEVES [facility] : 1950 Age/S: 73 / M [address] [place] [address] Blvd Unit #: [id number] Loc: [place] [address] Phys: Amanda Eaton MD Cardiology Acct: [id number] Dis Date: Status: DEP CLI PHONE #: [phone] Exam Date: 02/17/2023 1318 FAX #: [phone] Reason: EXAMS: CPT CODE: [id number] CTA HEART W CN ART/GRAFTS 91100 (Continued) ElectronicallySigned by Kurt Matute on 02/18/2023 at 0503 Reported and signed by: Saad Matute M.D. CC: Amanda Crouch Cardiology Uma BAUTISTA Technologist:Vick Jiang Jr, RT(R)(CT) CTDI: DLP: Trnscb Date/Time: 02/18/2023 (0503) [id number] Orig Print D/T: S: 02/18/2023 (0503) PAGE 3 Signed Report CREATININE W ESTIMATED [id number] 12:46:00* Test Item Value Reference Range Interpretation Comme nts BEDSIDE CREATININE (test code = CREATBED) 1.0 MG/DL 0.6-1.3 N Performed by cer [facility] GLOMERULAR FILTRATION RATE POC (test code = GFRBED) 79 ML/MIN Performed b y certified sandfill operator [facility] Glomerular Filtration Rate is a calculated parameterbased on serum Creatinine, patient age and sex. GFR valuesless than 60 mL/min/1.73 square meters are indicative ofChronic Kidney Disease. Values less than 15 mL/min/1.73square meters indicate Kidney failure. The calculation forGFR is based on the CKD-EPI (2020) calculation. This formulais race indifferent and is the recommended formula for GFRby the National Kidney Foundation for Adults.The GFR will not calculate if the sex is unknown or if thepatient's age is <18 years.Previously reported result: 79 ML/MINEdited by: INFCE on 02/17/23:841681/03/02 1246: GFRBED previously reported as: 79 ML/MIN Notes Date/Time Note Provider Source 2024-01-23 23:40:00 [facility] ([facility] Hospitalist Discharge Summary REPORT#:[id number] REPORT STATUS: Signed REPORT INITIALIZATION DATE:01/23/24 TIME: 2339 PATIENT: MARIS ACEVES UNIT #: [id number] ROOM/BED: [address] : [birth year] AGE: 73 SEX: M ATTEND: Glen Faye MD ADM AUTHOR: Glen Faye MD REPT SERVICE DT/TIME: 01/23/242339 * ALL edits or amendments must be made on the electronic/computer document * General Information Problem List/A P: 1. Paroxysmal atrial fibrillation 2. Bradycardia 3. Chest pain, unspecified 4. HTN (hypertension) 5. Thoracic ascending aortic aneurysm 6. Gout 7. Peripheral neuropathy 8. Chronic kidney disease, stage 3 unspecified 9. Prediabetes 10. Chronic diastolic (congestive) heart failure 11. Mixed hyperlipidemia 12. Obesity, Class II, BMI 35-39.9 Date of admission: Date of admission: 01/22/24 Discharge date: 01/23/24 Discharge diagnosis: - same as problem list above. Hospital course: Patient is a 73-year-old male with known HTN, HLD, NIKA, DM, and CKD who initially presented to [facility] in [facility] with the complaint of dizziness and chest pressure. He was noted to be in A-fib with a heart rate of 30s to 40s. BNP was elevated at 1323 and no acute findings were noted on CXR as well as CT scans of the chest abdomen and pelvis. Ascending thoracic aortic aneurysm measuring 4.2 cm was noted which was unchanged as compared to the previous study of 2021. He was transferred to this facility at the request of his client support representative Dr. Eaton. He was noted to be in sinus rhythm with a heart rate of 70s to 80s, and remained in sinus rhythm subsequently. He was seen by the client support representative EP Dr. White who recommended no further workup, and held metoprolol which patient was taking prior to admission. Patient hemodynamically remained stable and was subsequently discharged to home. He was started on Eliquis 5 mg twice daily which was sent to his pharmacy.. Pt. condition on discharge: improved Med Rec Med Rec Discharge meds: Stop taking the following medications: RAMIPRIL (ALTACE) 1.25 MG CAP 1.25 MILLIGRAM ORAL BEDTIME. METOPROLOL TARTRATE (LOPRESSOR) 25 MG TAB 25 MILLIGRAM ORAL TWICE DAILY. Continue taking these medications: ALLOPURINOL (ZYLOPRIM) 300 MG TAB 300 MILLIGRAM ORAL DAILY. ROSUVASTATIN (CRESTOR) 20 MG TAB 20 MILLIGRAM ORAL DAILY. metFORMIN (metFORMIN) 500 MG TAB 500 MILLIGRAM ORAL TWICE DAILY. Instructions: TAKE WITH MEALS amLODIPine (NORVASC) 10 MG TAB 10 MILLIGRAM ORAL DAILY. PREGABALIN (LYRICA) 150 MG CAP 150 MILLIGRAM ORAL TWICE DAILY. Start taking the following new medications: APIXABAN (ELIQUIS) 5 MG TAB 5 MILLIGRAM ORAL TWICE DAILY. Qty = 60 No Refills RAMIPRIL (ALTACE) 2.5 MG CAP 2.5 MILLIGRAM ORAL DAILY. Qty = 30 No Refills Objective Head/Eyes: atraumatic, normal conjunctiva/sclera, normocephalic, PERRL ENT: moist mucosal membranes, normal ear left, normal ear right, normal nose Neck: non-tender, supple/no meningismus, no masses or swelling Cardiovascular: normal capillary refill, normal heart sounds, regular rate rhythm Respiratory: aerating well, clear to auscultation, symmetric expansion, no distress Abdomen: obese, non-tender, normal bowel sounds, soft Extremities: edema (trace), moves all, no calf tenderness, no cyanosis Musculoskeletal: normal inspection, no CVA tenderness, no muscle spasm 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 Attending Physician: Attending Physician: Glen Faye MD Special instructions: FOLLOW INSTRUCTION ADVISED Consulting provider 1: Provider 1: Amanda Eaton MD Cardiology Specialty: CardiologyInterventional Quality: Discharge Advanced Care Plan 65 or Older Discussed with: patient, surrogate decis. maker Discussion included: code status (full code) Current Medications Current medication review: I attest that the foregoing medication list in the medical record is true, accurate, and complete to the best of my knowledge. at [address] [facility] #:[id number] END OF REPORT [facility] 2024-01-23 07:22:00 [id number] [place] [address] PATIENT NAME: MARIS ACEVES ADMIT DATE: 01/22/24 ACCOUNT NO: [id number] ROOM NO: Z.342 AGE: 73 REPORT TYPE: CONSULTATION REPORT SEX: M ADMITTING PHYSICIAN:Glen Faye MD ATTENDING PHYSICIAN:Glen Faye MD CONSULTATION DATE: 01/23/2024 REFERRING PHYSICIAN: Dr. Faye. REASON FOR CONSULTATION: We were asked to evaluate this patient for bradycardia. HISTORY OF PRESENT ILLNESS: This is a 73-year-old male with a history of thoracic aortic aneurysm, hypertension, hypertensive heart disease, CAD who presented to the [facility] yesterday after developing chest pressure and feeling "jittery." He was found to be in atrial fibrillation with a slow ventricular response, heart rate in the 30s. He was transferred here for further workup and evaluation. Currently, he is feeling better. He had some intermittent mild chest discomfort, but significantly improved from yesterday. PAST MEDICAL HISTORY: 1. Hypertension. 2. Hypertensive heart disease. 2D echocardiogram on June 23, 2023 shows ejection fraction 50-55% with impaired relaxation. 3. Hyperlipidemia. 4. Diabetes. 5. CKD. 6. Ascending thoracic aortic aneurysm - 4.5 by echo, 4.[address] angiogram on 02/17/2023. 7. Carotid vascular disease - mild by Doppler on 06/16/2022. 8. Lower extremity neuropathy. FAMILY HISTORY: Positive for heart disease. Brother with congestive heart failure. SOCIAL HISTORY: Occasional alcohol. No tobacco. Remote smoker. PAST SURGICAL HISTORY: Hernia repair, cholecystectomy, bilateral knee and shoulder surgery. HOME MEDICATIONS: Aspirin, amlodipine, ramipril, metoprolol, rosuvastatin, allopurinol, Lyrica, metformin. REVIEW OF SYSTEMS: CONSTITUTIONAL: No complaints of fever or chills. ENMT: No complaints of headache. EYES: No complaints of blurred vision. PATIENT NAME: MARIS ACEVES RESPIRATORY: No complaints of shortness of breath or cough. CARDIOVASCULAR: Chest pressure, which has significantly improved. No palpitations. GASTROINTESTINAL: No complaints of nausea or vomiting. GENITOURINARY: No complaints of urinary frequency or dysuria. MUSCULOSKELETAL: Left shoulder pain. SKIN: No complaints of skin rash. NEUROLOGIC: No complaints of focal weakness. PHYSICAL EXAMINATION: VITAL SIGNS: Temperature 98.6, blood pressure 148/98, pulse 70, respiratory rate 19, and O2 sats 98%. ENMT: Atraumatic, normocephalic. RESPIRATORY: Normal effort. Clear to auscultation bilaterally. CARDIOVASCULAR: Normal S1 and S2. No S3 or S4. There is occasional extrasystole. NECK: JVP is normal. There are no carotid bruits. ABDOMEN: Soft and nontender. EXTREMITIES: No edema. NEUROLOGIC: Cranial nerves II through XII are intact. No focal motor deficits noted. LABORATORY DATA: White blood cell count 7.5, hemoglobin 15.1, platelets 111. Sodium 140, potassium 3.8, chloride 104, CO2 is 29, BUN 30, creatinine 1.4, glucose 206, calcium 9, magnesium 2. Troponin I less than 0.012, 0.014, less than 0.012. NT-proBNP is 1690, triglycerides 344, LDL 36, total cholesterol 98, HDL 29. TSH 2.640. INR 1, PTT 36.5. Electrocardiogram January 22 at 0302 shows sinus rhythm with first-degree AV block. Nonspecific T-wave abnormality. Electrocardiogram at [facility] showed atrial fibrillation with slow ventricular response. Average heart rate 47, occasional pauses over 1.5 seconds. Telemetry in the emergency room at [facility] occasionally showed heart rates in the 30s. IMPRESSION: 1. Paroxysmal atrial fibrillation. He is now converted to sinus rhythm. Echocardiogram in June 2023 shows ejection fraction 50-55%. There is no evidence of acute coronary syndrome. He has had no prior history of atrial fibrillation. CHADS-VASc 4. 2. Hypertension. 3. Hypertensive heart disease. 4. Diabetes. 5. Hyperlipidemia. 6. Carotid vascular disease -- mild by carotid Doppler. 7. Ascending thoracic aortic aneurysm, 4.6 cm by CTA February 2023. 8. Coronary artery disease by CTA 02/17/2023 with a coronary calcium score of 698. RECOMMENDATIONS: 1. Hold beta charlene. 2. Start Eliquis. 3. Ambulate the patient. If he remains asymptomatic, the patient can be PATIENT NAME: MARIS ACEVES discharged and followed as outpatient. 4. Continue holding beta charlene. 5. Increase ramipril as needed for hypertension. Dictated By: Von White MD Date Dictated: 01/23/2024 07:22:21 Date Transcribed: 01/23/2024 07:39:55 GSP/KEVIN Receipt ID: [id number] Authenticated by Von White MD On 01/27/2024 04:16:11 PM at 0416 PATIENT NAME: SINDHU ACEVESO [facility] 2024-01-23 03:02:00 [id number] [place] [address] PATIENT NAME: MARIS ACEVES ADMIT DATE: 01/22/24 ACCOUNT NO: [id number] ROOM NO: [facility] AGE: 73 REPORT TYPE: ELECTROCARDIOGRAM SEX: M ADMITTING PHYSICIAN:Glen Faye MD ATTENDING PHYSICIAN:Glen Faye MD Order: [id number] Test Reason : new afib Test Date/Time Stamp: ThuJan 23 2024 03:02:50 Blood Pressure : / mmHG Vent. Rate : 071 BPM Atrial Rate : 071 BPM P-R Int : 288 ms QRS Dur : 108 ms QT Int : 418 ms P-R-T Axes : 085 -31 057 degrees QTc Int : 454 ms Sinus rhythm with 1st degree AV block Left axis deviation Abnormal ECG No previous ECGs available Confirmed by ILYA CAMPOS ([id number]) on 01/27/2024 9:22:07 PM Referred By: Glen Faye Confirmed by:ILYA CAMPOS at 2 PATIENT NAME: MARIS ACEVES [facility] 2024-01-22 21:32:00 [facility] ([facility]) Hospitalist History Physical REPORT#:[id number] REPORT STATUS: Signed REPORT INITIALIZATION DATE:01/22/24 TIME: 2131 PATIENT: MARIS ACEVES UNIT #: [id number] ROOM/BED: [facility]-A : 50 AGE: 73 SEX: M ATTEND: Glen Faye MD ADM AUTHOR: Robert Canada REPT SERVICE DT/TIME: 01/22/242131 * ALL edits or amendments must be made on the electronic/computer document * Robert Canada 01/22/242131: History of Present Illness HPI Chief complaint: bradycardia PCP: 73-year-old male with past medical history of hypertension, hyperlipidemia, NIKA, diabetes, CKD (unknown stage) arthritis, ascending thoracic aortic aneurysm, gout and peripheral neuropathy presented as a transfer from [facility] for further management of A-fib with SVR. Patient had presented there yesterday after feeling very dizzy while walking in the store. Episode associated with nonradiating pressure-like substernal chest pain and shortness of breath. Reports waking up this morning with some mild dizziness so had a meal, drank some coffee and took symptomatic prior to stepping out. Patient states he is able to drive himself to the store. 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 Currently having the most pain in his left shoulder. Reports having orthopnea and dyspnea on exertion over the last 3 months. Previous ED workup: Heart rate 40 on presentation. Labs remarkable for BNP 1323 , creatinine 1.71, BUN 35, GFR 42 and platelets 116. No acute findings on chest x-ray and CT chest/abdomen/pelvis. Ascending thoracic aortic aneurysm measuring 4.2 cm noted which parent report is same as compared to 2021.EKGs showed A-fib with SVR heart rate 38 and the other 47. Patient was given aspirin 162 mg, glucagon 1 mg IV, Lovenox 100 mg, Pepcid 20 mg IV and fluids at 125 mL/h Patient arrives here with heart rate 60s to 70s. Rhythm noted to be sinus on bedside telemetry. Admitted for further management. History Additional medical history: hypertension, hyperlipidemia, diabetes, CKD (unknown stage) arthritis, ascending thoracic aortic aneurysm, gout, NIKA(non compliant with cpap) and peripheral neuropathy Past surgical history: Reports: Spine surgery. Additional surgical history: Hernia repair Cholecystectomy Bilateral knee and shoulder surgery Family history: Reports: Cancer (colon), Diabetes. Alcohol use: Alcohol use (occasional) Drug use: Denies recreational drugs Smoking status for patients 13 years old or older: Former Smoker Medication/Allergy-Vaccine Hx Medications: Home Medications: Medication Dose/Rte/Freq Days Qty Entered Last Max Daily Dose Reviewed ALLOPURINOL (ZYLOPRIM) 300 MG PO DAILY 01/22/24 Strength: 300 MG TAB 2109 ROSUVASTATIN (CRESTOR) 20 MG PO DAILY 01/22/24 Strength: 20 MG TAB 2110 metFORMIN 500 MG PO BID 01/22/24 Strength: 500 MG TAB 2112 amLODIPine (NORVASC) 10 MG PO DAILY 01/22/24 Strength: 10 MG TAB 2112 PREGABALIN (LYRICA) 150 MG PO BID 01/22/24 Strength: 150 MG CAP 2112 RAMIPRIL (ALTACE) 1.25 MG PO BEDTIME 01/22/24 Strength: 1.25 MG CAP 2113 METOPROLOL TARTRATE 25 MG PO BID 01/22/24 (LOPRESSOR) 2115 Strength: 25 MG TAB Current Hospital Medications: Cardiovascular Drugs Sig/El Start time Last Medication Dose Route Stop Time Status Admin Atorvastatin Calcium 40 MG BEDTIME 01/22 2100 AC (LIPITOR) PO 02/21 2101 Amlodipine Besylate 10 MG DAILY 01/22 09 AC (NORVASC) PO 02/21 901 Central Nervous System Agents Sig/El Start time Last Medication Dose Route Stop Time Status Admin Acetaminophen 650 MG Q4H PRN PRN 01/21 2130 AC (TYLENOL) PO 02/20 2131 Electrolytic, Caloric, And Crissy Sig/El Start time Last Medication Dose Route Stop Time Status Admin Dextrose/Water 125 ML ASDIR PRN 01/22 0245 AC (DEXTROSE IN WATER) IV 02/21 0246 Dextrose/Water 250 ML ASDIR PRN 01/22 0245 AC (DEXTROSE IN WATER) IV 02/21 024 Dextrose/Water 25 GM ASDIR PRN 01/22 0245 AC (DEXTROSE 50% IN IV 02/21 024 WATER) Gastrointestinal Drugs Sig/El Start time Last Medication Dose Route Stop Time Status Admin Al Hydrox/Mg Hydrox/ 30 ML Q6H PRN PRN 01/21 2130 AC Simethicone PO 02/20 2131 (MAALOX PLUS) Docusate Sodium 100 MG BID PRN PRN 01/21 2130 AC (COLACE) PO 02/20 2131 Ondansetron HCl 4 MG Q6H PRN PRN 01/21 2130 AC (ZOFRAN) IV 02/20 2131 Hormones And Synthetic Substit Sig/El Start time Last Medication Dose Route Stop Time Status Admin Insulin Human Lispro See Dose AC HS 01/22 0730 AC (HumaLOG) Insts (1) SUBQ 02/21 0731 Glucagon 1 MG ASDIR PRN 01/22 0245 AC (GLUCAGON) IM 02/21 0246 Miscellaneous Therapeutic Agen Sig/El Start time Last Medication Dose Route Stop Time Status Admin Allopurinol 300 MG DAILY 01/22 09 AC (ZYLOPRIM) PO 02/21 901 Melatonin 3 MG BEDTIME PRN PRN 01/21 2130 AC (MELATONIN) PO 02/20 2131 Skin And Mucous Membrane Agent Sig/El Start time Last Medication Dose Route Stop Time Status Admin Lidocaine 1 PATCH DAILY 01/21 2130 AC 01/21 (Salonpas 4% Patch) TOPICAL 02/20 Dose Instructions: (1)Insulin Human Lispro (HumaLOG): LOW DOSE SLIDING SCALE Allergies: Coded Allergies: No Known Allergies (01/22/24) Review of Systems Constitutional: Denies: fever, generalized weakness, lethargy. Skin: Denies: diaphoresis, ecchymosis, itching. Allergy/Immun: Denies: hives, itching, rhinorrhea. Eyes: Denies: visual loss/blurred, diplopia, swelling. ENT: Denies: nasal congestion, sinus problem, voice change. Respiratory: Reports: SOB. Denies: pleurisy, wheezing. Cardiovascular: chest pain. Denies: edema, palpitations. GI: Denies: abdominal pain, nausea, vomiting. : Denies: dysuria, flank pain, frequency, hematuria. Musculoskeletal: extremity pain, lumbar pain. Denies: extremity swelling, myalgias. Neuro: lightheaded. Denies: headache, numbness. Psych: Denies: confusion, delusional, depression. Objective General VS/I O: Vital Signs: Date Time Temp Pulse Resp B/P B/P Pulse O2 O2 Flow FiO2 Mean Ox Delivery Rate 01/21 2101 36.9 01/21 2100 78 29 179/93 129 97 PATIENT WEIGHT: Weight (lb): Weight (oz): Weight (kg): Physical Exam General appearance: obese, alert, awake, oriented, no acute distress Head/Eyes: atraumatic, normal conjunctiva/sclera, normocephalic, PERRL ENT: moist mucosal membranes, normal ear left, normal ear right, normal nose Neck: non-tender, supple/no meningismus, no masses or swelling Cardiovascular: normal capillary refill, normal heart sounds, regular rate rhythm Respiratory: aerating well, clear to auscultation, symmetric expansion, no distress Abdomen: obese, non-tender, normal bowel sounds, soft Extremities: edema (trace), moves all, no calf tenderness, no cyanosis Musculoskeletal: normal inspection, no CVA tenderness, no muscle spasm 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 2 EKGs done confirming this with heart rate of 38 and 40. Cardiology consult Given fluids, glucagon prior to presentation with improvement in heart rate. Keep on telemetry Also given aspirin and Lovenox. Defer further anticoagulation to consults Repeat EKG Order echo and TSH #Chest pain Troponin negative. No acute ischemic changes reported prior to transfer Trend troponin Given aspirin and Lovenox Keep on telemetry Order lipid panel and hemoglobin A1c #Thrombocytopenia Unknown chronicity Monitor platelets Given full dose Lovenox at previous facility Monitor for any signs of bleeding # Acute on CKD vs CKD, stage III Creatinine 1.71, BUN 35 and GFR 42. Patient unsure of baseline creatinine and CKD stage Monitor renal labs. Repeat labs here pending Caution with nephrotoxic medications. Hold ramipril for now #DM type II Start SSI Hold metformin due to contrast use earlier today #History of thoracic ascending aortic aneurysm Patient aware of this. Size appears to be stable and over the last 2 years per imaging report Outpatient follow-up for monitoring # Hypertension Hold metoprolol due to bradycardia. Hold ramipril due to renal failure. Will resume amlodipine as appropriate #Hyperlipidemia Resume statin #Peripheral neuropathy Resume Lyrica #Obesity Counseled on diet and lifestyle modification VTE ppx: SCDs Pt is full Code. Pt has living will. NOK: [facility] #[phone] Dispo: likely dc home, pending clinical improvement Quality: Gen Med Crit Care VTE Prophylaxis VTE prophylaxis initiated: yes, no pharmacologic, reason: (thrombocytopenia) Current Medications Current medication review: I attest that the foregoing medication list in the medical record is true, accurate, and complete to the best of my knowledge. Advanced Care Plan 65 or Older Discussed with: patient, surrogate decis. maker Discussion included: living will, power of prosecuting attorney, code status BMI Screening > 25 or < 18.5 BMI status/follow-up: abnl BMI, pt to F/U w/PCP Glen Faye 02/03/24 1905: Attestations Physician Attestation Agree w/findings plan: Agree with the findings and plan as documented by JENYN Howard. at 0820 at 1903 RPT #:[id number] END OF REPORT [facility]
[2024-02-27] MEDS ORDERED: NA CHLORIDE 0.9% 500 ML ONE (12:05)
--- NOTE | 2024-02-27 12:50 | RAD REPORT ---
EXAMINATION: US bilateral LOWER EXTREMITY VENOUS DOPPLER CLINICAL INDICATION: Leg pain TECHNIQUE: Sonographic evaluation of the veins of the lower extremity bilaterally formed.Grayscale, c olor and spectral analysis performed on all vessels COMPARISON: 2019 FINDINGS: The common femoral, superficial femoral, greater saphenous, popliteal and posterior tibial veins bila terally are compressible and demonstrate augmentation. Doppler demonstrates good flow. IMPRESSION: No evidence of deep venous thrombosis involving either lower extremity
[2024-02-27 12:56] LABS: Absolute Basophils 0.1 K/uL (0-0.5); Absolute Eosinophils 0.3 K/uL (0-0.5); Absolute Lymphocytes (CBC) 1.4 K/uL (0.7-4.9); Absolute Monocytes 0.3 K/uL (0.1-1.3); Absolute Neutrophil 3.9 K/uL (1.8-8.0); Basophils % 0.9 % (0-1.3); Hematocrit 40.7 % (39.6-49.0); Hemoglobin 13.3 g/dL (13.6-17.9); Lymphocytes % 23.8 % (15.3-44.8); MCH 31.9 pg (27.0-35.0); MCHC 32.7 g/dL (32.0-36.0); MCV 97.4 fL (80-100); MPV 8.9 fL (7.6-11.3); Neutrophils % 65.3 % (41.7-73.7); Platelets 118 thou/uL (152-406); RBC Red Blood Cell Count 4.18 M/uL (4.33-5.43); Red Cell Distribution Width 14.6 % (12.1-15.2)
[2024-02-27 13:01] LABS: PT Prothrombin Time 16.1 SECONDS (9.4-12.5); Protime INR 1.45
[2024-02-27 13:16] LABS: Albumin 3.4 g/dL (3.4-5.0); Albumin/Globulin Ratio 1.1 (1.1-1.8); Anion Gap 6.9 mEq/L (5.0-15.0); Bilirubin Direct 0.2 mg/dL (0-0.2); Bilirubin Indirect, Calculated 0.4 mg/dL (0.2-0.8); Bilirubin Total 0.6 mg/dL (0.2-1.0); Globulin 3.2 g/dL (2.3-3.5); Magnesium 2.2 mg/dL (1.6-2.4); Potassium 3.9 mEq/L (3.5-5.1); Protein, Total 6.6 g/dL (6.4-8.2); Troponin High Sensitivity 15.3 pg/mL (<58.9)
--- NOTE | 2024-02-27 13:36 | RAD REPORT ---
Exam:Foot Left 3 View CLINICAL HISTORY: Left foot pain FINDINGS: No fracture or dislocation seen Hallux valgus deformity
--- NOTE | 2024-02-27 14:12 | RAD REPORT ---
EXAMINATION: CT HEAD WITHOUT CONTRAST CT CERVICAL SPINE WITHOUT CONTRAST CLINICAL INDICATION: Head and neck injury status post fall. Head and neck pain TECHNIQUE: Axial CT images from the skull base to the vertex without intravenous contrast. Axial CT i mages through the cervical spine were obtained without intravenous contrast. Sagittal and coronal reformatted images were created from the data set. Coronal and sagittal reformatted images were creat ed from the data set. One or more of the following dose reduction techniques were used: Automated exposure control, adjustment of the mA and/or kV according to patient size, and/or iterative reconstr uction. Unless otherwise specified, incidental findings do not require dedicated imaging follow-up. [id number]. Comparison: [address] FINDINGS: Intracranial bleed not noted. Ventricles are normal in caliber. No significant hypodensity within the brain No extra-axial fluid collection. No fluid within the sinuses/mastoids No fracture or dislocation is seen involving the cervical spine. IMPRESSION: No acute intracranial abnormality noted A cervical fracture is not seen. 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
--- NOTE | 2024-02-27 14:17 | EDPHYS ---
Physician Documentation [facility] Name: Manjinder Suggs Age: 74 yrs Sex: Male : 1950 Arrival Date: 02/27/2024 Time: 11:33 Bed 7 Private MD: ED Physician Samuel Cortes HPI: 02/26 12:51 This 74 yrs old Male presents to ER via Ambulatory with complaints of Fall shelley Injury. 12:51 Details of fall: The patient fell from an upright position, while walking. Onset: The shelley symptoms/episode began/occurred 4 day(s) ago. Associated injuries: The patient sustained left foot, painful injury, swelling. Severity of symptoms: At their worst the symptoms were moderate, in the emergency department the symptoms are unchanged. The patient has not experienced similar symptoms in the past. Historical: - Allergies: 11:56 No Known Allergies; iw - Home Meds: 11:57 dabigatran etexilate 150 mg oral capsule daily [Active]; iw - PMHx: 11:56 Arthritis; Gout; Hypertension; iw 11:57 Aneurysm; iw - Immunization history:: Adult Immunizations up to date. - Infectious Disease History:: Denies. - Social history:: Smoking status: Patient denies any tobacco usage or history of. - Family history:: not pertinent. ROS: 12:51 Constitutional: Negative for fever, chills, and weight loss, Eyes: Negative for injury, shelley pain, redness, and discharge, ENT: Negative for injury, pain, and discharge, Neck: Negative for injury, pain, and swelling, Cardiovascular: Negative for chest pain, palpitations, and edema, Respiratory: Negative for shortness of breath, cough, wheezing, and pleuritic chest pain, Abdomen/GI: Negative for abdominal pain, nausea, vomiting, diarrhea, and constipation, Back: Negative for injury and pain, : Negative for injury, bleeding, discharge, and swelling, Skin: Negative for injury, rash, and discoloration, Neuro: Negative for headache, weakness, numbness, tingling, and seizure, 12:51 MS/extremity: Positive for pain, swelling, tenderness, of the left leg, Exam: 12:51 Constitutional: This is a well developed, well nourished patient who is awake, alert, shelley and in no acute distress. Head/Face: Normocephalic, atraumatic. Eyes: Pupils equal round and reactive to light, extra-ocular motions intact. Lids and lashes normal. Conjunctiva and sclera are non-icteric and not injected. Cornea within normal limits. Periorbital areas with no swelling, redness, or edema. ENT: Nares patent. No nasal discharge, no septal abnormalities noted. Tympanic membranes are normal and external auditory canals are clear. Oropharynx with no redness, swelling, or masses, exudates, or evidence of obstruction, uvula midline. Mucous membranes moist. Neck: Trachea midline, no thyromegaly or masses palpated, and no cervical lymphadenopathy. Supple, full range of motion without nuchal rigidity, or vertebral point tenderness. No Meningismus. Chest/axilla: Normal chest wall appearance and motion. Nontender with no deformity. No lesions are appreciated. Cardiovascular: Regular rate and rhythm with a normal S1 and S2. No gallops, murmurs, or rubs. Normal PMI, no JVD. No pulse deficits. Respiratory: Lungs have equal breath sounds bilaterally, clear to auscultation and percussion. No rales, rhonchi or wheezes noted. No increased work of breathing, no retractions or nasal flaring. Abdomen/GI: Soft, non-tender, with normal bowel sounds. No distension or tympany. No guarding or rebound. No evidence of tenderness throughout. Back: No spinal tenderness. No costovertebral tenderness. Full range of motion. Male : Normal genitalia with no discharge or lesions. Skin: Warm, dry with normal turgor. Normal color with no rashes, no lesions, and no evidence of cellulitis. Neuro: Awake and alert, GCS 15, oriented to person, place, time, and situation. Cranial nerves II-XII grossly intact. Motor strength 5/5 in all extremities. Sensory grossly intact. Cerebellar exam normal. Normal gait. Psych: Awake, alert, with orientation to person, place and time. Behavior, mood, and affect are within normal limits. 12:51 Musculoskeletal/extremity: ROM: intact in all extremities, full active range of motion, full passive range of motion, Circulation is intact in all extremities. Sensation intact. Compartment Syndrome exam of affected extremity: is normal. Weight bearing: able to fully bear weight, DVT Exam: pain, swelling, tenderness, 14:15 ECG was reviewed by the Attending Physician. [facility] Vital Signs: 11:55 BP 137 / 90; Pulse 66; Resp 16; Temp 98.1; Pulse Ox 97% on R/A; Weight 120.2 kg; Height iw 5 ft. 11 in. ; Pain 4/10; 13:19 BP 137 / 86; Pulse 61; Resp 18; Pulse Ox 98% on R/A; ap3 11:55 Body Mass Index 36.96 (120.20 kg, 180.34 cm) iw 11:55 Pain Scale: Adult iw MDM: 11:41 Medical Screening Exam initiated shelley 12:56 Differential diagnosis: contusion. Data reviewed: vital signs, nurses notes, lab test [facility] result(s), EKG, radiologic studies. Consideration of Admission/Observation Escalation of care including admission/observation considered. I considered the following discharge prescriptions or medication management in the emergency department Medications were administered in the Emergency Department. See MAR. Independent interpretation of the following test(s) in the Emergency Department EKG: See my EKG interpretation above. Test considered but Not performed: Ultrasound no fast exam. Historians other than the Patient: pt and son well informed. Care significantly affected by the following chronic conditions: Hypertension, Obesity, gout , aneurysm. 02/26 11:57 Order name: Basic Metabolic Panel; Complete Time: 14:14 [facility] 02/26 11:57 Order name: CBC with Diff; Complete Time: 14:14 [facility] 02/26 11:57 Order name: LFT's; Complete Time: 14:14 [facility] 02/26 11:57 Order name: Magnesium; Complete Time: 14:14 [facility] 02/26 11:57 Order name: NT PRO-BNP; Complete Time: 14:14 [facility] 02/26 11:57 Order name: PT-INR; Complete Time: 14:14 [facility] 02/26 11:57 Order name: Troponin HS; Complete Time: 14:14 [facility] 02/26 11:57 Order name: Lipase; Complete Time: 14:14 [facility] 02/26 11:57 Order name: XRAY Chest (1 view) [facility] 02/26 11:57 Order name: Foot Left 3 View XRAY; Complete Time: 14:14 [facility] 02/26 11:57 Order name: US Extremity Venous W Compression Maynor; Complete Time: 14:14 [facility] 02/26 11:57 Order name: CT Head C Spine; Complete Time: 14:14 [facility] 02/26 11:57 Order name: CT Chest, Abdomen, Pelvis - W/Contrast [facility] 02/26 11:57 Order name: Cardiac monitoring; Complete Time: 12:12 [facility] 02/26 11:57 Order name: EKG - Nurse/Tech; Complete Time: 12:56 [facility] 02/26 11:57 Order name: IV Saline Lock; Complete Time: 12:56 [facility] 02/26 11:57 Order name: Labs collected and sent; Complete Time: 12:56 [facility] 02/26 11:57 Order name: O2 Per Protocol; Complete Time: 12:12 [facility] 02/26 11:57 Order name: O2 Sat Monitoring; Complete Time: 12:12 [facility] EC:15 Rate is 63 beats/min. Rhythm is regular. QRS [place] is Normal. MA interval is prolonged shelley at 226 msec. QRS interval is normal. QT interval is normal. No Q waves. T waves are Normal. No ST changes noted. Clinical impression: NSR w/ Non-specific ST/T Changes and 1st degree heart block. Interpreted by me. Reviewed by me. Administered Medications: 12:56 Drug: NS 0.9% IV 500 ml IV at bolus once; to be given as a bolus over 30 minutes Route: aa5 IV; Rate: bolus; Site: right antecubital; 15:03 Follow up: IV Status: Completed infusion; IV Intake: 500ml ap3 14:24 Not Given (Physician Discretion): ns 0.9% 1000 ml IV at 125 ml/hr continuous aa5 Disposition Summary: 02/27/24 14:16 Discharge Ordered Notes: Location: Home shelley Problem: new shelley Symptoms: have improved shelley Condition: Stable shelley Diagnosis - Fall on same level, unspecified shelley - Contusion of foot shelley - Pain in left leg shelley - Unspecified symptoms and signs involving the musculoskeletal system shelley - Unspecified kidney failure - mild insufficency shelley Followup: shelley - With: Private Physician - When: 2 - 3 days - Reason: Recheck today's complaints, Continuance of care, Re-evaluation by your physician Discharge Instructions: - Discharge Summary Sheet shelley - Edema shelley - Fall Prevention in the Home, Adult shelley - Musculoskeletal Pain shelley - Fall Prevention in the Home, Adult, [id number] shelley - Chronic Kidney Disease, Adult, [id number] shelley - Chronic Kidney Disease, Adult shelley Forms: - Medication Reconciliation Form shelley - Antibiotic Education shelley - Prescription Opioid Use shelley - Patient Portal Instructions shelley - Leadership Thank You Letter [facility] Prescriptions: - Tylenol 325 mg Oral tablet - take 2 tablets ORAL route every 6 hours as needed; 40 tablet; Refills: 0, shelley Product Selection Permitted Signatures: Dispatcher [employer] EDSamuel Wallace MD MD cha Williams, Irene, RN RN iw Anita Mary RN RN aa5 Bianca Lira RN RN ap3 Corrections: (The following items were deleted from the chart) 11:57 11:57 BASIC METABOLIC PANEL+C.LAB.BRZ ordered. EDMS EDMS 11:57 11:57 CBC+H.LAB.BRZ ordered. EDMS EDMS 11:57 11:57 HEPATIC FUNCTION+C.LAB.BRZ ordered. EDMS EDMS 11:57 11:57 MAGNESIUM+C.LAB.BRZ ordered. EDMS EDMS 11:57 11:57 PROBNP+C.LAB.BRZ ordered. EDMS EDMS 11:57 11:57 PROTIME (+INR)+COAG.LAB.BRZ ordered. EDMS EDMS 11:57 11:57 Troponin High Sensitivity+C.LAB.BRZ ordered. EDMS EDMS 11:57 11:57 LIPASE+C.LAB.BRZ ordered. EDMS EDMS 11:57 11:57 Urinalysis+U.LAB.BRZ ordered. EDMS EDMS 11:57 11:57 Chest Single View+RAD.RAD.BRZ ordered. EDMS EDMS 11:58 11:58 Foot Left 3 View+RAD.RAD.BRZ ordered. EDMS EDMS 11:58 11:58 Extrem Venous W Compression Maynor+US.RAD.BRZ ordered. EDMS EDMS 11:58 11:58 Head C Spine MPR Wo Con+CT.RAD.BRZ ordered. EDMS EDMS 11:58 11:58 Chest Abdomen Pelvis W Con+CT.RAD.BRZ ordered. EDMS EDMS
--- NOTE | 2024-02-27 14:17 | ER ---
Nurse's Notes [facility] Name: Manjinder Suggs Age: 74 yrs Sex: Male : 1950 Arrival Date: 02/27/2024 Time: 11:33 Bed 7 Private MD: Diagnosis: Fall on same level, unspecified;Contusion of foot;Pain in left leg;Unspecified symptoms and signs involving the musculoskeletal system;Unspecified kidney failure-mild insufficency Presentation: 02/26 11:53 Chief complaint: Patient states: was coming out of shower and he slipped on wet floor , iw landed on left side, happened almost a week ago and now he has bruising to left foot and my left leg looks bigger and he has pain in left upper thigh and into lower back. 11:53 Acuity: RENÉE 4 iw 11:55 Coronavirus screen: At this time, the client does not indicate any symptoms associated iw with coronavirus-19. Ebola Screen: No symptoms or risks identified at this time. Initial Sepsis Screen: Does the patient meet any 2 criteria? No. Patient's initial sepsis screen is negative. Does the patient have a suspected source of infection? No. Patient's initial sepsis screen is negative. Risk Assessment: Do you want to hurt yourself or someone else? Patient reports no desire to harm self or others. Onset of symptoms was February 20, 2024. 11:55 Method Of Arrival: Ambulatory iw 12:03 Acuity: RENÉE 3 iw Historical: - Allergies: 11:56 No Known Allergies; iw - Home Meds: 11:57 dabigatran etexilate 150 mg oral capsule daily [Active]; iw - PMHx: 11:56 Arthritis; Gout; Hypertension; iw 11:57 Aneurysm; iw - Immunization history:: Adult Immunizations up to date. - Infectious Disease History:: Denies. - Social history:: Smoking status: Patient denies any tobacco usage or history of. - Family history:: not pertinent. Screenin:00 [facility] ED Fall Risk Assessment (Adult) History of falling in the last 3 months, aa5 including since admission Yes- single mechanical fall (1 pt) Confusion or Disorientation No (0 pts) Intoxicated or Sedated No (0 pts) Impaired Gait No (0 pts) Mobility Assist Device Used No (0 pt) Altered Elimination No (0 pt) Score/Fall Risk Level 0 - 2 = Low Risk Oriented to surroundings, Maintained a safe environment, Educated pt \T\ family on fall prevention, incl call for assistance when getting out of bed. Abuse screen: Denies threats or abuse. Nutritional screening: No deficits noted. Tuberculosis screening: No symptoms or risk factors identified. Assessment: 12:00 General: Appears comfortable, Behavior is calm, cooperative. Pain: Complains of pain in aa5 left leg and left foot Pain radiates to back Pain currently is 4 out of 10 on a pain scale. Pain began approximately 1 week ago. Neuro: Level of Consciousness is awake, alert, obeys commands, Oriented to person, place, time, situation. Cardiovascular: Patient's skin is warm and dry. Respiratory: Airway is patent Respiratory effort is even, unlabored, Respiratory pattern is regular, symmetrical. GI: Abdomen is round. : No signs and/or symptoms were reported regarding the genitourinary system. EENT: No signs and/or symptoms were reported regarding the EENT system. Derm: Skin is pink, warm \T\ dry. Bruising that is dark purple, on left leg and left foot. Musculoskeletal: Range of motion: intact in all extremities, Swelling present in left lower leg and left foot. 13:19 Reassessment: Patient is alert, oriented x 3, equal unlabored respirations, skin aa5 warm/dry/pink. Vital Signs: 11:55 BP 137 / 90; Pulse 66; Resp 16; Temp 98.1; Pulse Ox 97% on R/A; Weight 120.2 kg; Height iw 5 ft. 11 in. ; Pain 4/10; 13:19 BP 137 / 86; Pulse 61; Resp 18; Pulse Ox 98% on R/A; ap3 11:55 Body Mass Index 36.96 (120.20 kg, 180.34 cm) iw 11:55 Pain Scale: Adult iw ED Course: 11:35 Patient arrived in ED. mr 11:41 Samuel Cortes MD is Attending Physician. [facility] 11:55 Triage completed. iw 11:56 Arm band placed on. iw 12:00 Patient has correct armband on for positive identification. Bed in low position. Call aa5 light in reach. Side rails up X 1. Client placed on continuous cardiac and pulse oximetry monitoring. NIBP monitoring applied. nurse monitoring on. Pulse ox on. NIBP on. 12:04 Anita Mary, RN is Primary Nurse. aa5 12:45 Initial lab(s) drawn, by me, sent to lab. Inserted saline lock: 20 gauge in right aa5 antecubital area, using aseptic technique. Blood collected. Flushed with 10 mL NS. 12:46 US Extremity Venous W Compression Maynor In Process Unspecified. EDMS 12:54 EKG done, by ED staff, reviewed by Samuel Cortes MD. aa5 13:15 XRAY Chest (1 view) In Process Unspecified. EDMS 13:15 Foot Left 3 View XRAY In Process Unspecified. EDMS 13:58 CT Head C Spine In Process Unspecified. EDMS 13:58 CT Chest, Abdomen, Pelvis - W/Contrast In Process Unspecified. EDMS 15:02 No provider procedures requiring assistance completed. IV discontinued, intact, ap3 bleeding controlled, No redness/swelling at site. Pressure dressing applied. 15:03 Provided Education on: discharge instructions. ap3 Administered Medications: 12:56 Drug: NS 0.9% IV 500 ml IV at bolus once; to be given as a bolus over 30 minutes Route: aa5 IV; Rate: bolus; Site: right antecubital; 15:03 Follow up: IV Status: Completed infusion; IV Intake: 500ml ap3 14:24 Not Given (Physician Discretion): ns 0.9% 1000 ml IV at 125 ml/hr continuous aa5 Medication: 15:03 VIS not applicable for this client. aa5 Intake: 15:03 IV: 500ml; Total: 500ml. ap3 Outcome: 14:16 Discharge ordered by . shelley 15:03 Discharged to home ambulatory, with family, ap3 15:03 Condition: good 15:03 Discharge instructions given to patient, Instructed on discharge instructions, follow up and referral plans. medication usage, Demonstrated understanding of instructions, follow-up care, medications, Prescriptions given X 1, 15:06 Patient left the ED. ap3 Signatures: Dispatcher [employer] Samuel Blanc MD MD cha Rivera, Mary, Reg Reg Rebeca Turpin RN RN iw Anita Mary, RN RN aa5 Bianca Lira RN RN ap3 Corrections: (The following items were deleted from the chart) 12:57 12:47 EKG done, by ED staff, reviewed by Samuel Cortes MD aa5 aa5
--- NOTE | 2024-02-27 14:24 | RAD REPORT ---
EXAM: CT CHEST, ABDOMEN AND PELVIS WITHOUT CONTRAST CLINICAL INDICATION: Chest and abdominal pain status post fall TECHNIQUE: CT chest, abdomen and pelvis was performed, with 100 cc Isovue-300 IV contrast, as per de partment protocol. Axial, sagittal and coronal reconstructions were obtained. One or more of the following dose reduction techniques were used: Automated exposure control, adjustment of the mA and/o r kV according to the patient size, and/or iterative reconstruction. Unless otherwise specified, incidental findings do not require dedicated imaging follow-up. [id number]. Oral contrast not given. This limits evaluation of the bowel. COMPARISON: None FINDINGS: A pulmonary contusion not seen. No mediastinal hematoma noted No pleural effusion.. No pericardial effusion Liver, spleen, pancreas, adrenals, kidneys and bladder do not demonstrate any acute traumatic injury. There is no evidence of diverticulitis Postsurgical changes involve the lumbar spine and pelvis. The superior aspect of a metallic cage is present within the medial right ilium adjacent to the SI niurka int. The cage traverses joint. The inferior aspect lies within the lateral right sacrum. An additional metallic cage lies within the medial left ilium. Small bilateral hernias containing fat. 5.3 cm left renal cyst. Small ventral hernias IMPRESSION: No acute traumatic injury involving chest, abdomen or pelvis seen
--- NOTE | 2024-02-27 14:24 | RAD REPORT ---
Procedure: Chest Single View HISTORY: Chest pain COMPARISON: January 2024 FINDINGS: The lungs appear clear of acute infiltrate. No significant pleural effusion noted. The heart is normal size. IMPRESSION: No acute abnormality is displayed.
[2024-02-27 18:26] VITALS: TEMP 98.1
[2024-02-27 18:28] VITALS: BP 137/86; O2SAT 98
--- NOTE | 2024-03-01 13:00 | EKG ---
Test Date: 2024-02-27 Test Time: 12:54:01 Pool Nurse: AM MEASUREMENT RESULTS: Intervals: Rate: 63 MN: 226 QRSD: 108 QT: 426 QTc: 435 [place]: P: 70 MN: 226 QRS: -41 T: 61 INTERPRETIVE STATEMENTS: Sinus rhythm with 1st degree AV block Left axis deviation Abnormal ECG Compared to ECG 01/22/2024 14:53:59 First degree AV block now present Left-axis deviation now present Atrial fibrillation no longer present Electronically Signed On 03-01-24 12:52:25 CDT by Ranjit Marx
== END 2024-02-27 15:06 | disposition home or self-care (01) ==
LOC: ER 11:33
DX: S90.32XA Contusion of left foot, initial encounter (principal); M79.605 Pain in left leg; R29.91 Unspecified symptoms and signs involving the musculoskeletal system; N19 Unspecified kidney failure; W18.30XA Fall on same level, unspecified, initial encounter; I10 Essential (primary) hypertension
CPT/HCPCS: 96361; 93005; 85025; 80048; 36415; 83735; 85610; 80076; 84484; 83690; 83880; 70450; 72125; 71260; 74177; 71045; 73630; 93970; 96360; 99285; Q9967; J7040